=== PATIENT | male | born 1945 | race Hispanic/Latino ===

== ENCOUNTER 2018-04-26 10:59 | Day surgery (SDC) | payer MEDICARE, OTHER ==
[2013-12-02 09:37] VITALS: BMI 19.3
[2018-04-26] MEDS ORDERED: Ciprofloxacin 400mg/200ml D5W 400 MG/200 ML BAG IVPB ONE (14:38)
[2018-04-26] MEDS ORDERED: Lidocaine 2% Jelly (Uro-Jet) ONE (14:39)
[2018-04-26] MEDS ORDERED: Midazolam 2 MG/2 ML VIAL ONE (14:50)
[2018-04-26] MEDS ORDERED: Propofol 10 mg/ml Inj (20 ML) ONE (14:50)
[2018-04-26] MEDS ORDERED: Gentamicin 160 MG in Sodium Chloride 0.9% 100 ML IVPB ONE (14:53)
--- NOTE | 2018-04-26 15:24 | PCM.SURG1 ---
Surgeon's Initial Post Op Note - Surgeon's Notes Surgeon: Karsten Circuit Court Magistrate: DAVID Type of Anesthesia: General LMA Anesthesia Administered By: Staff Pre-Operative Diagnosis: Urinary retention/Large bladder calculi Operative Findings: same Post-Operative Diagnosis: URINARY RETENTION/LARGE BLADDER CALCULI/bph/PARKS Operation Performed: Cystoscopy Specimen/Specimens Removed: na Estimated Blood Loss: EBL {In ML}: 0 Blood Products Given: N/A Drains Used: No Drains Post-Op Condition: Good Date of Surgery/Procedure: 04/26/18 Time of Surgery/Procedure: 15:25
[2018-04-26 17:33] VITALS: BP 114/75; PULSE 61; RESP 20; TEMP 97.8; O2SAT 96
--- NOTE | 2018-04-27 00:18 | OP ---
PROCEDURE DATE: 04/26/2018 PREOPERATIVE DIAGNOSES: Hematuria and history of urinary retention. POSTOPERATIVE DIAGNOSES: Large bladder calculi and benign prostatic hypertrophy with significant bladder outlet obstruction. DESCRIPTION OF PROCEDURE: The patient was draped and prepped in the usual manner. He was asked to sign a detailed informed consent prior to the procedure. He is aware of the risks and complications of the procedure and risks and complications of holding anticoagulants. He agrees to the procedure, was brought into the room and draped and prepped in the usual manner. After time out was taken according to the rules and regulations of [facility], the patient was cystoscoped with #21 Storz panendoscope after carefully draping and prepping. The pendulous and membranous urethra were normal. The prostatic urethra showed trilobar hypertrophy with significant outlet obstruction. The bladder was entered atraumatically. There was a large size stone within the bladder. There was diffuse erythema of the bladder consistent with irritation from the stone. Based on the above findings, the patient will need cystolithotripsy. We will discuss with his medical team. Timbo Shelley MD
--- NOTE | 2018-04-27 16:13 | RAD ---
HISTORY: Urinary retention COMPARISON: No prior. FINDINGS: BOWEL: No evidence acute mechanical bowel obstruction. Moderate amount stool seen within the ascending and proximal transverse colon. BONES: Normal. OTHER FINDINGS: Urinary bladder appears distended. Elliptical shaped hyperdense focus of overlying the superior margin of the true pelvis could represent a large bladder calculus. Consider followup pelvic ultrasound to confirm and exclude other pathology. Metallic clips right upper quadrant of the abdomen. There also clips seen in the right inguinal region and overlying the right femoral head likely due to prior hernia repair. . IMPRESSION: Possible large bladder calculus within a distended urinary bladder. Followup bladder ultrasound recommended confirm and exclude other pathology
== END 2018-04-26 18:15 | disposition home or self-care (01) ==
LOC: C.SDS 10:59
PROVIDERS: ATTEND Urology
DX: N21.0 Calculus in bladder (principal); N40.1 Benign prostatic hyperplasia with lower urinary tract symptoms; N13.8 Other obstructive and reflux uropathy; R33.8 Other retention of urine; R31.9 Hematuria, unspecified; I25.10 Atherosclerotic heart disease of native coronary artery without angina pectoris; I48.91 Unspecified atrial fibrillation; J44.9 Chronic obstructive pulmonary disease, unspecified; E11.9 Type 2 diabetes mellitus without complications; E78.5 Hyperlipidemia, unspecified; I10 Essential (primary) hypertension; Z95.0 Presence of cardiac pacemaker; Z95.1 Presence of aortocoronary bypass graft; Z87.891 Personal history of nicotine dependence; Z79.01 Long term (current) use of anticoagulants
CPT/HCPCS: 52000; 74018; J0744; J1580

== ENCOUNTER 2018-05-24 11:25 | Inpatient (IN) | payer MEDICARE, OTHER ==
[2018-05-24 11:25] VITALS: BMI 19.3
[2018-05-24 12:01] LABS: MEAN CORPUSCULAR HEMOGLOBIN 26.3 pg (27.0-31.0); MEAN CORPUSCULAR HGB CONC 33.8 g/dL (33.0-37.0); MEAN PLATELET VOLUME 9.6 fL (7.2-11.7); RBC 4.45 Mil/uL (4.40-5.90); RED CELL DISTRIBUTION WIDTH 18.1 % (11.5-14.5); WHITE BLOOD COUNT 5.9 K/uL (4.8-10.8)
[2018-05-24 12:15] LABS: URINE BILIRUBIN NEGATIVE (NEGATIVE); URINE BLOOD 3+ (NEGATIVE); URINE CLARITY Hazy (Clear); URINE COLOR Red (YELLOW); URINE GLUCOSE (UA) 1+ mg/dL (Normal); URINE PROTEIN 2+ mg/dL (NEGATIVE); URINE UROBILINOGEN NORMAL mg/dL (0.2-1.0)
[2018-05-24 12:16] LABS: URINE LEUKOCYTE ESTERASE 1+ Leu/uL (Negative)
[2018-05-24 12:17] LABS: HEMOGLOBIN 11.7 g/dL (12.0-18.0); MEAN CELL VOLUME 77.7 fL (80.0-94.0)
[2018-05-24 12:23] LABS: ALB/GLOB RATIO 1.7 (1.0-2.1); ALBUMIN 4.8 g/dL (3.5-5.0); ALT/SGPT 23 U/L (21-72); AST/SGOT 20 U/L (17-59); BLOOD UREA NITROGEN 9 mg/dL (9-20); GFR AFRICAN-AMERICAN > 60; GFR NON-AFRICAN AMERICAN > 60
[2018-05-24 12:24] LABS: PROTHROMBIN TIME 43.9 SECONDS (9.7-12.2)
--- NOTE | 2018-05-24 13:07 | C.PDOC ---
History Of Present Illness 72 yo male with PMH of CABG, HTN, afib, ?kidney stones c/o hematuria for one week. Pt notes that he has been having worsening hematuria for week. Also notes pelvic pain and nausea. Notes believes he is a getting a procedure done for the hematuria. Last dose of coumadin on Thursday. Denies back pain , vomiting, diarrhea, sob, chest pain, or any other bleeding. Pt is a poor historian. 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)) History/Exam Limitations: no limitations Onset/Duration Of Symptoms: Days (7) Current Symptoms Are (Timing): Still Present Past Medical History Vital Signs: Last Vital Signs Temp 98.1 F 05/24/18 11:37 Pulse 66 05/24/18 14:56 Resp 18 05/24/18 14:56 BP 112/73 05/24/18 14:56 Pulse Ox 98 05/24/18 15:16 - Medical History PMH: Anemia, Cardia Arrhythmia (AFIB), HTN, Hypercholesterolemia, Peripheral Edema, Seizures (last episode february 2018- ETIOLOGY ?) Denies: Chronic Kidney Disease Surgical History: CABG (X3), Pacemaker (2017) Family History: States: Unknown Family Hx - Social History Hx Alcohol Use: No Hx Substance Use: No - Immunization History Hx Tetanus Toxoid Vaccination: No Hx Influenza Vaccination: No Hx Pneumococcal Vaccination: No Review Of Systems Except As Marked, All Systems Reviewed And Found Negative. Genitourinary: Positive for: Hematuria Physical Exam - Physical Exam Appears: Well, Non-toxic, No Acute Distress (pt is sleeping) Skin: Normal Color, Warm, Dry Head: Atraumatic, Normacephalic Eye(s): bilateral: Normal Inspection, EOMI Nose: Normal Oral Mucosa: Moist Neck: Normal, Normal ROM, Supple Chest: Symmetrical Cardiovascular: Rhythm Regular Respiratory: Normal Breath Sounds Gastrointestinal/Abdominal: Soft, Tenderness ((+) pelvic tenderness) Back: Normal Inspection, No CVA Tenderness, No Vertebral Tenderness Extremity: Normal ROM Neurological/Psych: Oriented x3, Normal Speech ED Course And Treatment - Laboratory Results Result Diagrams: 05/24/18 11:55 05/24/18 11:55 O2 Sat by Pulse Oximetry: 98 Progress Note: Case discussed with Dr Scruggs, instructs Luz admission. Case discussed with Dr Braun, agreed upon plan and admission. Disposition - Disposition Disposition: HOSPITALIZED Disposition Time: 12:28 Condition: STABLE - Clinical Impression Clinical Impression: Hematuria, Afib, Elevated INR
[2018-05-24] MEDS ORDERED: Phytonadione 10 mg/ml Inj (Adult) SC ONE (17:13)
--- NOTE | 2018-05-24 17:16 | CP.PCM.HP ---
History of Present Illness - History of Present Illness History of Present Illness: cc; blood in urine and urological condition HPI: PT is a 72 year old maler recentlly under my care with chronic a fib and prosthetic valve admitted for gross hematuria, large bladder stone. Pt INR on admission is 4 PT will urdergo surgery to remove stone by his urologyst. PT is being admitted with gross hematuria for urology procedure on 05/26/18. Pt co being nauseus. PMH: Iron deficiency anemia Hypercholesterolemia HTN Elevated PSA Convulsions Atril Fib Anemia Surgical Hx: 06/16/2017 Pacemaker 11/16/2016 Open Heart Family Hx: None Social Hx: No smoke No ETOH No Drugs Allergies: None Medications: Keppra 500mg Iron 325mg Miralax powder Metoprolol 25mg Atorvastatin 40mg Aspirin 81mg Warfarin 3mg Tamsulosin 0.4mg Amiodarone 100mg Past Patient History - Past Medical History & Family History Past Medical History?: Yes - Past Social History Smoking Status: Former Smoker - CARDIAC Hx Cardia Arrhythmia: Yes (AFIB) Hx Hypercholesterolemia: Yes Hx Hypertension: Yes Hx Pacemaker: Yes (2016) Hx Peripheral Edema: Yes - PULMONARY Hx Respiratory Disorders: No - NEUROLOGICAL Hx Seizures: Yes (last episode february 2018- ETIOLOGY ?) - HEENT Hx HEENT Problems: No - RENAL Hx Chronic Kidney Disease: No - ENDOCRINE/METABOLIC Hx Endocrine Disorders: No - HEMATOLOGICAL/ONCOLOGICAL Hx Anemia: Yes - INTEGUMENTARY Hx Dermatological Problems: No - MUSCULOSKELETAL/RHEUMATOLOGICAL Hx Musculoskeletal Disorders: No Hx Falls: Yes - GASTROINTESTINAL Hx Gastrointestinal Disorders: No - GENITOURINARY/GYNECOLOGICAL Hx Genitourinary Disorders: Yes Hx Prostate Problems: Yes (RETENTION) Other/Comment: HX: BLADDER STONE - PSYCHIATRIC Hx Substance Use: No - SURGICAL HISTORY Hx Coronary Artery Bypass Graft: Yes (X3) - ANESTHESIA Hx Anesthesia: Yes Hx Anesthesia Reactions: No Hx Malignant Hyperthermia: No Meds Allergies/Adverse Reactions: Allergies Allergy/AdvReac Type Severity Reaction Status Date / Time No Known Allergies Allergy Verified 05/24/18 11:40 Results - Vital Signs Recent Vital Signs: Last Vital Signs Temp 99.2 F 05/24/18 16:31 Pulse 66 05/24/18 16:31 Resp 20 05/24/18 16:31 BP 121/75 05/24/18 16:31 Pulse Ox 95 05/24/18 16:31 - Labs Result Diagrams: 05/25/18 08:00 05/25/18 08:00 Labs: Laboratory Results - last 24 hr 05/24/18 05/24/18 05/24/18 11:55 11:55 11:55 WBC 5.9 RBC 4.45 Hgb 11.7 L D Hct 34.6 L MCV 77.7 L D MCH 26.3 L MCHC 33.8 RDW 18.1 H Plt Count 141 MPV 9.6 PT 43.9 H* INR 4.0 APTT 50 H Sodium 144 Potassium 3.4 L Chloride 102 Carbon Dioxide 28 Anion Gap 17 BUN 9 Creatinine 0.8 Est GFR ( Amer) > 60 Est GFR (Non-Af Amer) > 60 Random Glucose 106 Calcium 9.0 Total Bilirubin 1.5 H AST 20 ALT 23 Alkaline Phosphatase 103 Total Protein 7.7 Albumin 4.8 Globulin 2.9 Albumin/Globulin Ratio 1.7 Urine Color Urine Clarity Urine pH Ur Specific [place] Urine Protein Urine Glucose (UA) Urine Ketones Urine Blood Urine Nitrate Urine Bilirubin Urine Urobilinogen Ur Leukocyte Esterase Urine WBC (Auto) Urine RBC (Auto) 05/24/18 11:55 WBC RBC Hgb Hct MCV MCH MCHC RDW Plt Count MPV PT INR APTT Sodium Potassium Chloride Carbon Dioxide Anion Gap BUN Creatinine Est GFR ( Amer) Est GFR (Non-Af Amer) Random Glucose Calcium Total Bilirubin AST ALT Alkaline Phosphatase Total Protein Albumin Globulin Albumin/Globulin Ratio Urine Color Red Urine Clarity Hazy Urine pH 6.0 Ur Specific [place] 1.014 Urine Protein 2+ H Urine Glucose (UA) 1+ H Urine Ketones Negative Urine Blood 3+ H Urine Nitrate Negative Urine Bilirubin Negative Urine Urobilinogen Normal Ur Leukocyte Esterase 1+ H Urine WBC (Auto) 57 H Urine RBC (Auto) 48929 H Assessment & Plan - Assessment and Plan (Free Text) Assessment: 1. Urology gross hematuria warfarin held small dose of vitamin d inr in AM Urologyst consulted 2. nausea and vomiting, mild hypokalemia fluids ordered 3. bp stable
[2018-05-24] MEDS ORDERED: Potassium Ch 20mEq in D5-1/2NS 1,000 ML IV SCH (18:00)
--- NOTE | 2018-05-24 19:51 | CARD ---
APPROVED REPORT EKG Measurement Heart [id number] <Conclusion> Sinus rhythm with 1st degree AV block Possible Left atrial enlargement Left bundle branch block Abnormal ECG
--- NOTE | 2018-05-24 20:27 | CP.PCM.CON ---
History of Present Illness - History of Present Illness History of Present Illness: The pt is a 72 whit old man, s/p bio VR, (last echo overall normal LV EF, non- obstructed valve with small paravalvular leak). pt is on amio for PAF (in nsr, mild first degree avb with lbbb. INR is 4.0 (warfarin), and pt has kidney stone and hematuria. No chest pain or lopez. He is for urological surgery. Review of Systems - Review of Systems All systems: reviewed and no additional remarkable complaints except (as above. otherwise negative) Past Patient History - Past Medical History & Family History Past Medical History?: Yes - Past Social History Smoking Status: Former Smoker - CARDIAC Hx Cardia Arrhythmia: Yes (AFIB) Hx Hypercholesterolemia: Yes Hx Hypertension: Yes Hx Pacemaker: Yes (2017) Hx Peripheral Edema: Yes - PULMONARY Hx Respiratory Disorders: No - NEUROLOGICAL Hx Seizures: Yes (last episode february 2018- ETIOLOGY ?) - HEENT Hx HEENT Problems: No - RENAL Hx Chronic Kidney Disease: No - ENDOCRINE/METABOLIC Hx Endocrine Disorders: No - HEMATOLOGICAL/ONCOLOGICAL Hx Anemia: Yes - INTEGUMENTARY Hx Dermatological Problems: No - MUSCULOSKELETAL/RHEUMATOLOGICAL Hx Musculoskeletal Disorders: No Hx Falls: Yes - GASTROINTESTINAL Hx Gastrointestinal Disorders: No - GENITOURINARY/GYNECOLOGICAL Hx Genitourinary Disorders: Yes Hx Prostate Problems: Yes (RETENTION) Other/Comment: HX: BLADDER STONE - PSYCHIATRIC Hx Substance Use: No - SURGICAL HISTORY Hx Coronary Artery Bypass Graft: Yes (X3) - ANESTHESIA Hx Anesthesia: Yes Hx Anesthesia Reactions: No Hx Malignant Hyperthermia: No Meds Allergies/Adverse Reactions: Allergies Allergy/AdvReac Type Severity Reaction Status Date / Time No Known Allergies Allergy Verified 05/24/18 11:40 - Medications Medications: Current Medications Amiodarone HCl (Cordarone) 100 mg PO DAILY [facility] Docusate Sodium (Colace) 100 mg PO BID [facility] Last Admin: 05/24/18 18:03 Dose: 100 mg Ferrous Sulfate (Feosol) 325 mg PO TID [facility] Last Admin: 05/24/18 18:02 Dose: 325 mg Potassium Chloride/Dextrose/Sod Cl (Potassium Chl 20 Meq In D5-1/2ns) 1,000 mls @ 75 mls/hr IV .[id number] [facility] Stop: 05/25/18 07:19 Last Admin: 05/24/18 18:04 Dose: 75 mls/hr Levetiracetam (Keppra) 500 mg PO BID [facility] Last Admin: 05/24/18 18:01 Dose: 500 mg Metoprolol Tartrate (Lopressor) 25 mg PO BID [facility] Last Admin: 05/24/18 18:02 Dose: 25 mg Ondansetron HCl (Zofran Inj) 4 mg IVP Q4H PRN PRN Reason: FOR NAUSEA/VOMITING Last Admin: 05/24/18 18:02 Dose: 4 mg Pantoprazole Sodium (Protonix Ec Tab) 40 mg PO DAILY [facility] Pneumococcal Polyvalent Vaccine (Pneumovax 23 Vaccine) 0.5 ml IM .ONCE ONE Stop: 05/26/18 10:01 Rosuvastatin Calcium (Crestor) 20 mg PO HS [facility] Tamsulosin HCl (Flomax) 0.4 mg PO HS [facility] Physical Exam - Constitutional Appears: Older Than Stated Age - Head Exam Head Exam: ATRAUMATIC - Eye Exam Eye Exam: EOMI - ENT Exam ENT Exam: Mucous Membranes Dry - Neck Exam Neck exam: Positive for: Normal Inspection - Respiratory Exam Respiratory Exam: Clear to Auscultation Bilateral - Cardiovascular Exam Cardiovascular Exam: REGULAR RHYTHM, Systolic Murmur - GI/Abdominal Exam GI & Abdominal Exam: Normal Bowel Sounds - Exam External exam: NORMAL EXTERNAL EXAM - Extremities Exam Extremities exam: Positive for: normal inspection - Back Exam Back exam: NORMAL INSPECTION - Neurological Exam Neurological exam: Alert, Oriented x3, Reflexes Normal - Psychiatric Exam Psychiatric exam: Normal Affect - Skin Skin Exam: Normal Color Results - Vital Signs Recent Vital Signs: Last Vital Signs Temp 99.2 F 05/24/18 16:31 Pulse 66 05/24/18 16:31 Resp 20 05/24/18 16:31 BP 121/75 05/24/18 18:02 Pulse Ox 95 05/24/18 16:31 - Labs Result Diagrams: 05/24/18 11:55 05/24/18 11:55 Labs: Laboratory Results - last 24 hr 05/24/18 05/24/18 05/24/18 11:55 11:55 11:55 WBC 5.9 RBC 4.45 Hgb 11.7 L D Hct 34.6 L MCV 77.7 L D MCH 26.3 L MCHC 33.8 RDW 18.1 H Plt Count 141 MPV 9.6 PT 43.9 H* INR 4.0 APTT 50 H Sodium 144 Potassium 3.4 L Chloride 102 Carbon Dioxide 28 Anion Gap 17 BUN 9 Creatinine 0.8 Est GFR ( Amer) > 60 Est GFR (Non-Af Amer) > 60 Random Glucose 106 Calcium 9.0 Total Bilirubin 1.5 H AST 20 ALT 23 Alkaline Phosphatase 103 Total Protein 7.7 Albumin 4.8 Globulin 2.9 Albumin/Globulin Ratio 1.7 Urine Color Urine Clarity Urine pH Ur Specific [place] Urine Protein Urine Glucose (UA) Urine Ketones Urine Blood Urine Nitrate Urine Bilirubin Urine Urobilinogen Ur Leukocyte Esterase Urine WBC (Auto) Urine RBC (Auto) 05/24/18 11:55 WBC RBC Hgb Hct MCV MCH MCHC RDW Plt Count MPV PT INR APTT Sodium Potassium Chloride Carbon Dioxide Anion Gap BUN Creatinine Est GFR ( Amer) Est GFR (Non-Af Amer) Random Glucose Calcium Total Bilirubin AST ALT Alkaline Phosphatase Total Protein Albumin Globulin Albumin/Globulin Ratio Urine Color Red Urine Clarity Hazy Urine pH 6.0 Ur Specific [place] 1.014 Urine Protein 2+ H Urine Glucose (UA) 1+ H Urine Ketones Negative Urine Blood 3+ H Urine Nitrate Negative Urine Bilirubin Negative Urine Urobilinogen Normal Ur Leukocyte Esterase 1+ H Urine WBC (Auto) 57 H Urine RBC (Auto) 46124 H - EKG Data EKG Interpreted by: Myself (read as above by me) Assessment & Plan - Assessment and Plan (Free Text) Assessment: 1. S/P AVR, bio. Pt can stop coumadin pending urological procedure, once INR is in the acceptable range. 2. CV status is stable.
--- NOTE | 2018-05-25 07:51 | CP.PCM.PN ---
Subjective - Date & Time of Evaluation Date of Evaluation: 05/25/18 Time of Evaluation: 07:49 - Subjective Subjective: Pt feels OK, eating breakfast. Objective - Vital Signs/Intake and Output Vital Signs (last 24 hours): Temp Pulse Resp BP Pulse Ox 98.8 F 68 20 108/64 96 05/25/18 00:11 05/25/18 00:11 05/25/18 00:11 05/25/18 00:11 05/25/18 00:11 Intake and Output: 05/25/18 05/25/18 06:59 18:59 Intake Total 1360 Output Total 300 Balance 1060 - Medications Medications: Current Medications Amiodarone HCl (Cordarone) 100 mg PO DAILY [facility] Docusate Sodium (Colace) 100 mg PO BID [facility] Last Admin: 05/24/18 18:03 Dose: 100 mg Ferrous Sulfate (Feosol) 325 mg PO TID [facility] Last Admin: 05/24/18 18:02 Dose: 325 mg Levetiracetam (Keppra) 500 mg PO BID [facility] Last Admin: 05/24/18 18:01 Dose: 500 mg Metoprolol Tartrate (Lopressor) 25 mg PO BID [facility] Last Admin: 05/24/18 18:02 Dose: 25 mg Ondansetron HCl (Zofran Inj) 4 mg IVP Q4H PRN PRN Reason: FOR NAUSEA/VOMITING Last Admin: 05/24/18 18:02 Dose: 4 mg Pantoprazole Sodium (Protonix Ec Tab) 40 mg PO DAILY [facility] Pneumococcal Polyvalent Vaccine (Pneumovax 23 Vaccine) 0.5 ml IM .ONCE ONE Stop: 05/26/18 10:01 Rosuvastatin Calcium (Crestor) 20 mg PO [facility] Last Admin: 05/24/18 21:35 Dose: 20 mg Tamsulosin HCl (Flomax) 0.4 mg PO [facility] Last Admin: 05/24/18 21:35 Dose: 0.4 mg - Labs Labs: 05/24/18 11:55 05/24/18 11:55 PT 43.9 SECONDS (9.7-12.2) H* 05/24/18 11:55 INR 4.0 05/24/18 11:55 APTT 50 SECONDS (21-34) H 05/24/18 11:55 - Constitutional Appears: Well - Head Exam Head Exam: ATRAUMATIC - Eye Exam Eye Exam: EOMI - ENT Exam ENT Exam: Mucous Membranes Moist - Neck Exam Neck Exam: Full ROM - Respiratory Exam Respiratory Exam: Clear to Ausculation Bilateral - Cardiovascular Exam Cardiovascular Exam: REGULAR RHYTHM, Murmur - GI/Abdominal Exam GI & Abdominal Exam: Normal Bowel Sounds - Exam External exam: NORMAL EXTERNAL EXAM - Back Exam Back Exam: NORMAL INSPECTION - Neurological Exam Neurological Exam: Alert, Normal Gait, Oriented x3 - Psychiatric Exam Psychiatric exam: Normal Affect - Skin Skin Exam: Normal Color Assessment and Plan - Assessment and Plan (Free Text) Assessment: 1. S/P AVR: INr was 4.o: Await lower INR to allow urology surgery: pt is cleared once INR is acceptable.
--- NOTE | 2018-05-25 08:08 | CP.PCM.PN ---
Subjective - Date & Time of Evaluation Date of Evaluation: 05/25/18 Time of Evaluation: 08:06 - Subjective Subjective: Patient with Known Large bladder calculi and bph with monk. Pt is scheueled for TULAP and open suprapubic Lithotomy tomorrow. Karsten Objective - Vital Signs/Intake and Output Vital Signs (last 24 hours): Temp Pulse Resp BP Pulse Ox 98.8 F 68 20 108/64 96 05/25/18 00:11 05/25/18 00:11 05/25/18 00:11 05/25/18 00:11 05/25/18 00:11 Intake and Output: 05/25/18 05/25/18 06:59 18:59 Intake Total 1360 Output Total 300 Balance 1060 - Medications Medications: Current Medications Amiodarone HCl (Cordarone) 100 mg PO DAILY [facility] Docusate Sodium (Colace) 100 mg PO BID [facility] Last Admin: 05/24/18 18:03 Dose: 100 mg Ferrous Sulfate (Feosol) 325 mg PO TID [facility] Last Admin: 05/24/18 18:02 Dose: 325 mg Levetiracetam (Keppra) 500 mg PO BID [facility] Last Admin: 05/24/18 18:01 Dose: 500 mg Metoprolol Tartrate (Lopressor) 25 mg PO BID [facility] Last Admin: 05/24/18 18:02 Dose: 25 mg Ondansetron HCl (Zofran Inj) 4 mg IVP Q4H PRN PRN Reason: FOR NAUSEA/VOMITING Last Admin: 05/24/18 18:02 Dose: 4 mg Pantoprazole Sodium (Protonix Ec Tab) 40 mg PO DAILY [facility] Pneumococcal Polyvalent Vaccine (Pneumovax 23 Vaccine) 0.5 ml IM .ONCE ONE Stop: 05/26/18 10:01 Rosuvastatin Calcium (Crestor) 20 mg PO [facility] Last Admin: 05/24/18 21:35 Dose: 20 mg Tamsulosin HCl (Flomax) 0.4 mg PO [facility] Last Admin: 05/24/18 21:35 Dose: 0.4 mg - Labs Labs: 05/24/18 11:55 05/24/18 11:55 PT 43.9 SECONDS (9.7-12.2) H* 05/24/18 11:55 INR 4.0 05/24/18 11:55 APTT 50 SECONDS (21-34) H 05/24/18 11:55
[2018-05-25 08:33] LABS: HEMOGLOBIN 9.9 g/dL (12.0-18.0); MEAN CELL VOLUME 78.2 fL (80.0-94.0); MEAN CORPUSCULAR HEMOGLOBIN 26.3 pg (27.0-31.0); MEAN CORPUSCULAR HGB CONC 33.7 g/dL (33.0-37.0); MEAN PLATELET VOLUME 9.6 fL (7.2-11.7); RBC 3.74 Mil/uL (4.40-5.90); RED CELL DISTRIBUTION WIDTH 18.3 % (11.5-14.5); WHITE BLOOD COUNT 3.8 K/uL (4.8-10.8)
[2018-05-25 08:46] LABS: INR 2.6; PROTHROMBIN TIME 28.2 SECONDS (9.7-12.2)
[2018-05-25 09:01] LABS: ALB/GLOB RATIO 1.4 (1.0-2.1); ALBUMIN 3.3 g/dL (3.5-5.0); ALT/SGPT 27 U/L (21-72); AST/SGOT 16 U/L (17-59); BLOOD UREA NITROGEN 10 mg/dL (9-20); CALCIUM 7.9 mg/dl (8.6-10.4); GFR AFRICAN-AMERICAN > 60; GFR NON-AFRICAN AMERICAN > 60
[2018-05-25] MEDS: Pantoprazole 40 mg EC Tab PO SCH (10:01)
--- NOTE | 2018-05-25 10:21 | RAD ---
Date of service: 05/25/2018 HISTORY: preop COMPARISON: Chest radiograph dated 12/02/2013 TECHNIQUE: Chest PA and lateral FINDINGS: LUNGS: No active pulmonary disease. PLEURA: No significant pleural effusion identified. No pneumothorax apparent. CARDIOVASCULAR: Prior sternotomy with sternal wires and surgical clips in place. Left subclavian access pacemaker. Atherosclerotic aortic calcifications. Cardiomediastinal silhouette stably enlarged. Intracardiac prosthetic device. OSSEOUS STRUCTURES: Unchanged. VISUALIZED UPPER ABDOMEN: Right upper quadrant surgical clips. OTHER FINDINGS: None. IMPRESSION: No active disease.
[2018-05-25] MEDS ORDERED: Potassium Chloride 20 mEq ER Tab PO ONE ×2 (10:45→16:00)
--- NOTE | 2018-05-25 14:29 | CP.PCM.PN ---
Subjective - Date & Time of Evaluation Date of Evaluation: 05/25/18 Time of Evaluation: 15:30 - Subjective Subjective: Pt reports feeling well no chest pain no sob no fever no pain pt reports eaing well without N?V Objective - Vital Signs/Intake and Output Vital Signs (last 24 hours): Temp Pulse Resp BP Pulse Ox 98.4 F 64 20 114/62 95 05/25/18 08:14 05/25/18 10:05 05/25/18 08:14 05/25/18 10:05 05/25/18 08:14 Intake and Output: 05/25/18 05/25/18 06:59 18:59 Intake Total 1360 Output Total 300 Balance 1060 - Medications Medications: Current Medications Amiodarone HCl (Cordarone) 100 mg PO DAILY [facility] Last Admin: 05/25/18 10:02 Dose: 100 mg Docusate Sodium (Colace) 100 mg PO BID [facility] Last Admin: 05/25/18 10:01 Dose: 100 mg Ferrous Sulfate (Feosol) 325 mg PO TID [facility] Last Admin: 05/25/18 13:23 Dose: 325 mg Levetiracetam (Keppra) 500 mg PO BID [facility] Last Admin: 05/25/18 10:01 Dose: 500 mg Metoprolol Tartrate (Lopressor) 25 mg PO BID [facility] Last Admin: 05/25/18 10:01 Dose: 25 mg Ondansetron HCl (Zofran Inj) 4 mg IVP Q4H PRN PRN Reason: FOR NAUSEA/VOMITING Last Admin: 05/24/18 18:02 Dose: 4 mg Pantoprazole Sodium (Protonix Ec Tab) 40 mg PO DAILY [facility] Last Admin: 05/25/18 10:01 Dose: 40 mg Pneumococcal Polyvalent Vaccine (Pneumovax 23 Vaccine) 0.5 ml IM .ONCE ONE Stop: 05/26/18 10:01 Potassium Chloride (K-Dur 20 Meq Er Tab) 40 meq PO DAILY [facility] Stop: 05/25/18 16:01 Rosuvastatin Calcium (Crestor) 20 mg PO [facility] Last Admin: 05/24/18 21:35 Dose: 20 mg Tamsulosin HCl (Flomax) 0.4 mg PO [facility] Last Admin: 05/24/18 21:35 Dose: 0.4 mg - Labs Labs: 05/25/18 08:00 05/25/18 08:00 PT 28.2 SECONDS (9.7-12.2) H D 05/25/18 08:00 INR 2.6 D 05/25/18 08:00 APTT 50 SECONDS (21-34) H 05/24/18 11:55 - Constitutional Appears: Well, Non-toxic - Eye Exam Eye Exam: Normal appearance - ENT Exam ENT Exam: Mucous Membranes Moist - Respiratory Exam Respiratory Exam: Clear to Ausculation Bilateral - Cardiovascular Exam Cardiovascular Exam: Irregular Rhythm. absent: JVD, Rubs - GI/Abdominal Exam GI & Abdominal Exam: Soft, Normal Bowel Sounds. absent: Tenderness Assessment and Plan - Assessment and Plan (Free Text) Assessment: bp stable hypokalemia replaced K prosthetic valve; coumadin helf for procedure INr still therapeutic monitor closely bladder stone and gross hematuria for surgery tomorrow.
--- NOTE | 2018-05-25 17:32 | CP.PCM.PN ---
Subjective - Date & Time of Evaluation Date of Evaluation: 05/25/18 Time of Evaluation: 17:30 - Subjective Subjective: Consent obtained,caseDiscussed with Dr Obando, for. or tomorrow Karsten Objective - Vital Signs/Intake and Output Vital Signs (last 24 hours): Temp Pulse Resp BP Pulse Ox 98.7 F 62 20 94/72 L 94 L 05/25/18 16:15 05/25/18 16:15 05/25/18 16:15 05/25/18 17:13 05/25/18 16:15 Intake and Output: 05/25/18 05/25/18 06:59 18:59 Intake Total 1360 200 Output Total 300 Balance 1060 200 - Medications Medications: Current Medications Amiodarone HCl (Cordarone) 100 mg PO DAILY [facility] Last Admin: 05/25/18 10:02 Dose: 100 mg Docusate Sodium (Colace) 100 mg PO BID [facility] Last Admin: 05/25/18 17:10 Dose: 100 mg Ferrous Sulfate (Feosol) 325 mg PO TID [facility] Last Admin: 05/25/18 17:11 Dose: 325 mg Levetiracetam (Keppra) 500 mg PO BID [facility] Last Admin: 05/25/18 17:10 Dose: 500 mg Metoprolol Tartrate (Lopressor) 25 mg PO BID [facility] Last Admin: 05/25/18 17:13 Dose: Not Given Ondansetron HCl (Zofran Inj) 4 mg IVP Q4H PRN PRN Reason: FOR NAUSEA/VOMITING Last Admin: 05/24/18 18:02 Dose: 4 mg Pantoprazole Sodium (Protonix Ec Tab) 40 mg PO DAILY [facility] Last Admin: 05/25/18 10:01 Dose: 40 mg Pneumococcal Polyvalent Vaccine (Pneumovax 23 Vaccine) 0.5 ml IM .ONCE ONE Stop: 05/26/18 10:01 Rosuvastatin Calcium (Crestor) 20 mg PO [facility] Last Admin: 05/24/18 21:35 Dose: 20 mg Tamsulosin HCl (Flomax) 0.4 mg PO HS [facility] Last Admin: 05/24/18 21:35 Dose: 0.4 mg - Labs Labs: 05/25/18 08:00 05/25/18 08:00 PT 28.2 SECONDS (9.7-12.2) H D 05/25/18 08:00 INR 2.6 D 05/25/18 08:00 APTT 50 SECONDS (21-34) H 05/24/18 11:55
[2018-05-25] MEDS ORDERED: Phytonadione 10 mg/ml Inj (Adult) IM STA (23:07)
[2018-05-26 05:43] LABS: HEMOGLOBIN 10.4 g/dL (12.0-18.0); MEAN CELL VOLUME 78.3 fL (80.0-94.0); MEAN CORPUSCULAR HEMOGLOBIN 25.9 pg (27.0-31.0); MEAN CORPUSCULAR HGB CONC 33.1 g/dL (33.0-37.0); MEAN PLATELET VOLUME 9.7 fL (7.2-11.7); RBC 4.02 Mil/uL (4.40-5.90)
[2018-05-26 05:54] LABS: INR 1.5; PROTHROMBIN TIME 16.9 SECONDS (9.7-12.2)
[2018-05-26 06:16] LABS: ALB/GLOB RATIO 1.5 (1.0-2.1); ALBUMIN 3.6 g/dL (3.5-5.0); ALT/SGPT 26 U/L (21-72); AST/SGOT 12 U/L (17-59); BLOOD UREA NITROGEN 9 mg/dL (9-20); CALCIUM 8.2 mg/dl (8.6-10.4); GFR AFRICAN-AMERICAN > 60; GFR NON-AFRICAN AMERICAN > 60
[2018-05-26] MEDS ORDERED: Gentamicin 160 MG in Sodium Chloride 0.9% 100 ML IVPB ONE (08:13)
[2018-05-26] MEDS ORDERED: Lidocaine 2% Jelly (Uro-Jet) ONE (08:14)
[2018-05-26] MEDS ORDERED: Ciprofloxacin 400mg/200ml D5W 400 MG/200 ML BAG IVPB ONE (08:14)
[2018-05-26] MEDS ORDERED: Midazolam 2 MG/2 ML VIAL ONE (08:18)
[2018-05-26] MEDS ORDERED: Propofol 10 mg/ml Inj (20 ML) ONE (08:18)
[2018-05-26] MEDS ORDERED: Succinylcholine Chloride 20 mg/ml Syr (5 ml) IV ONE (08:20)
[2018-05-26] MEDS: Pantoprazole 40 mg EC Tab PO SCH (09:30)
[2018-05-26] MEDS ORDERED: Pneumococcal 23-Valent Vaccine IM ONE (10:00)
[2018-05-26] MEDS ORDERED: ePHEDrine 50 mg/ml Inj ONE (10:07)
[2018-05-26] MEDS ORDERED: Lidocaine Hydrochloride 5 ML INJ ONE (10:14)
[2018-05-26] MEDS ORDERED: Bupivacaine HCl 0.5% PF (30 ml) Inj ONE (10:14)
[2018-05-26] MEDS ORDERED: Neostigmine Methylsulfate 3mg/3ml Syringe IV ONE (10:44)
[2018-05-26] MEDS ORDERED: Bacitracin Ointment 30 GM TUBE ONE (10:50)
--- NOTE | 2018-05-26 10:58 | PCM.SURG1 ---
Surgeon's Initial Post Op Note - Surgeon's Notes Surgeon: Karsten Restorer [employer]: Marva Type of Anesthesia: General Endo Anesthesia Administered By: Nasir miller Pre-Operative Diagnosis: BPH/PARKS/LARGE BLADDER CALCULI Operative Findings: BPH/PARKS/LARGE BLADDER CALCULI. Post-Operative Diagnosis: SAME Operation Performed: SUPRAPUBIC CYSTO LITHOTOMY/TULAP Specimen/Specimens Removed: BLADDER CALCULI Estimated Blood Loss: EBL {In ML}: 10 Blood Products Given: N/A Drains Used: No Drains Post-Op Condition: Good Date of Surgery/Procedure: 05/26/18 Time of Surgery/Procedure: 11:00
--- NOTE | 2018-05-26 12:03 | CP.PCM.PN ---
Subjective - Date & Time of Evaluation Date of Evaluation: 05/26/18 Time of Evaluation: 12:03 - Subjective Subjective: Pt seen in PACU. Pt with warming blancket sleeping comfortably. Per RN pt comfortable and awake and alert after surgery. Objective - Vital Signs/Intake and Output Vital Signs (last 24 hours): Temp Pulse Resp BP Pulse Ox 96 F L 60 15 123/66 95 05/26/18 11:08 05/26/18 11:37 05/26/18 11:37 05/26/18 11:37 05/26/18 11:37 Intake and Output: 05/26/18 05/26/18 06:59 18:59 Intake Total 300 1862 Balance 300 1862 - Medications Medications: Current Medications Amiodarone HCl (Cordarone) 100 mg PO DAILY [facility] Last Admin: 05/26/18 09:29 Dose: Not Given Docusate Sodium (Colace) 100 mg PO BID [facility] Last Admin: 05/26/18 09:29 Dose: Not Given Ferrous Sulfate (Feosol) 325 mg PO TID [facility] Last Admin: 05/26/18 09:29 Dose: Not Given Lactated Ringer's (Lactated Ringer's) 1,000 mls @ 100 mls/hr IV .Q10H [facility] Levetiracetam (Keppra) 500 mg PO BID [facility] Last Admin: 05/26/18 09:30 Dose: Not Given Meperidine HCl (Demerol) 12.5 mg IVP Q5M PRN PRN Reason: Shivering/Rigor Metoprolol Tartrate (Lopressor) 25 mg PO BID [facility] Last Admin: 05/26/18 09:30 Dose: Not Given Morphine Sulfate (Morphine) 1 mg IVP Q10M PRN PRN Reason: Pain, moderate (4-7) Stop: 05/26/18 13:11 Ondansetron HCl (Zofran Inj) 4 mg IVP Q4H PRN PRN Reason: FOR NAUSEA/VOMITING Last Admin: 05/24/18 18:02 Dose: 4 mg Pantoprazole Sodium (Protonix Ec Tab) 40 mg PO DAILY [facility] Last Admin: 05/26/18 09:30 Dose: Not Given Rosuvastatin Calcium (Crestor) 20 mg PO HS [facility] Last Admin: 05/25/18 21:20 Dose: 20 mg Tamsulosin HCl (Flomax) 0.4 mg PO HS [facility] Last Admin: 05/25/18 21:20 Dose: 0.4 mg - Labs Labs: 05/26/18 05:40 05/26/18 05:40 PT 16.9 SECONDS (9.7-12.2) H D 05/26/18 05:40 INR 1.5 D 05/26/18 05:40 APTT 32 SECONDS (21-34) D 05/26/18 05:40 - Constitutional Appears: Non-toxic - ENT Exam ENT Exam: Mucous Membranes Moist - Respiratory Exam Respiratory Exam: Clear to Ausculation Bilateral - Cardiovascular Exam Cardiovascular Exam: absent: JVD, Rubs - GI/Abdominal Exam GI & Abdominal Exam: Soft, Normal Bowel Sounds Assessment and Plan - Assessment and Plan (Free Text) Assessment: 1. sp cysto lithotripsy pt received FFP and one unit PRBC during surgery sp two doses of vitamin k will resume coumadin tomorrow as well as lovenox ok to start 24 hours per urologyst will monitor cbc closely 2. ivf 3. bp monitoring dvt prophylaxis
[2018-05-26] MEDS: Lactated Ringer's 1,000 ML IV SCH ×2 (12:05→21:49)
--- NOTE | 2018-05-26 12:22 | PCM.SURG1 ---
Surgeon's Initial Post Op Note - Surgeon's Notes Surgeon: Karsten Integrated Marketing Manager: DAVID Type of Anesthesia: General LMA Anesthesia Administered By: staff Pre-Operative Diagnosis: BPH/PARKS Operative Findings: same Post-Operative Diagnosis: same Operation Performed: TULAP Specimen/Specimens Removed: na Estimated Blood Loss: EBL {In ML}: 0 Blood Products Given: N/A Drains Used: No Drains Post-Op Condition: Good Date of Surgery/Procedure: 05/26/18 Time of Surgery/Procedure: 12:21
[2018-05-26 12:44] LABS: MEAN CELL VOLUME 78.9 fL (80.0-94.0); MEAN CORPUSCULAR HEMOGLOBIN 26.4 pg (27.0-31.0); MEAN CORPUSCULAR HGB CONC 33.5 g/dL (33.0-37.0); RBC 4.15 Mil/uL (4.40-5.90); RED CELL DISTRIBUTION WIDTH 18.9 % (11.5-14.5); WHITE BLOOD COUNT 4.7 K/uL (4.8-10.8)
[2018-05-26] MEDS: Dextrose 5%/0.45% NS 1,000 ML IV SCH ×2 (12:50→21:08)
--- NOTE | 2018-05-26 20:21 | CP.PCM.PN ---
Subjective - Date & Time of Evaluation Date of Evaluation: 05/26/18 Time of Evaluation: 20:18 - Subjective Subjective: Seen and exmined No chest pain or dyspnea Objective - Vital Signs/Intake and Output Vital Signs (last 24 hours): Temp Pulse Resp BP Pulse Ox 99.2 F 76 20 110/67 93 L 05/26/18 16:18 05/26/18 16:18 05/26/18 16:18 05/26/18 17:25 05/26/18 16:18 Intake and Output: 05/26/18 05/27/18 18:59 06:59 Intake Total 4317 Output Total 2850 Balance 1467 - Medications Medications: Current Medications Amiodarone HCl (Cordarone) 100 mg PO DAILY [facility] Last Admin: 05/26/18 09:29 Dose: Not Given Docusate Sodium (Colace) 100 mg PO BID [facility] Last Admin: 05/26/18 17:25 Dose: 100 mg Enoxaparin Sodium (Lovenox) 56.699 mg SC Q12H [facility] Ferrous Sulfate (Feosol) 325 mg PO TID [facility] Last Admin: 05/26/18 17:26 Dose: 325 mg Lactated Ringer's (Lactated Ringer's) 1,000 mls @ 100 mls/hr IV .Q10H [facility] Last Admin: 05/26/18 12:05 Dose: Not Given Dextrose/Sodium Chloride (Dextrose 5%/0.45% Ns 1000 Ml) 1,000 mls @ 125 mls/hr IV .Q8H [facility] Stop: 05/27/18 04:14 Last Admin: 05/26/18 12:50 Dose: 125 mls/hr Levetiracetam (Keppra) 500 mg PO BID [facility] Last Admin: 05/26/18 17:25 Dose: 500 mg Meperidine HCl (Demerol) 12.5 mg IVP Q5M PRN PRN Reason: Shivering/Rigor Metoprolol Tartrate (Lopressor) 25 mg PO BID [facility] Last Admin: 05/26/18 17:25 Dose: 25 mg Ondansetron HCl (Zofran Inj) 4 mg IVP Q4H PRN PRN Reason: FOR NAUSEA/VOMITING Last Admin: 05/24/18 18:02 Dose: 4 mg Pantoprazole Sodium (Protonix Ec Tab) 40 mg PO DAILY [facility] Last Admin: 05/26/18 09:30 Dose: Not Given Rosuvastatin Calcium (Crestor) 20 mg PO HS [facility] Last Admin: 05/25/18 21:20 Dose: 20 mg Tamsulosin HCl (Flomax) 0.4 mg PO HS [facility] Last Admin: 05/25/18 21:20 Dose: 0.4 mg Warfarin Sodium (Coumadin) 5 mg PO 1800 [facility] Stop: 05/27/18 18:01 - Labs Labs: 05/26/18 12:39 05/26/18 05:40 PT 16.9 SECONDS (9.7-12.2) H D 05/26/18 05:40 INR 1.5 D 05/26/18 05:40 APTT 32 SECONDS (21-34) D 05/26/18 05:40 - Constitutional Appears: Well, No Acute Distress - Head Exam Head Exam: ATRAUMATIC - Eye Exam Eye Exam: EOMI Pupil Exam: PERRL - Respiratory Exam Respiratory Exam: Clear to Ausculation Bilateral - Cardiovascular Exam Cardiovascular Exam: REGULAR RHYTHM, Murmur. absent: JVD - GI/Abdominal Exam GI & Abdominal Exam: Soft. absent: Tenderness - Extremities Exam Extremities Exam: absent: Calf Tenderness - Neurological Exam Neurological Exam: CN II-XII Intact, Oriented x3 Assessment and Plan (1) S/P AVR Assessment & Plan: Patient s/p modified Cabrol procedure and mechanical AVR Anticoagulation with heparin, bridge to warfarin Status: Acute (2) S/P CABG (coronary artery bypass graft) Assessment & Plan: S/p resecent reop and CABG Cont with curent mes Stable and asymptomatic Status: Acute (3) Afib Assessment & Plan: Cont with amiodarone Cont with anticoagulation for stroke prevention Status: Acute
--- NOTE | 2018-05-27 06:32 | OP ---
PROCEDURE DATE: 05/26/2018 PREOPERATIVE DIAGNOSES: Large bladder calculi and benign prostatic hypertrophy with bladder outlet obstruction causing hematuria. POSTOPERATIVE DIAGNOSES: Large bladder calculi and benign prostatic hypertrophy with bladder outlet obstruction causing hematuria PROCEDURE: Transurethral laser ablation of the prostate and suprapubic cystolithotomy. SURGEON: Dr. Karsten Everett CONCRETE PUMP OPERATOR: House doctor, Dr. Durham FINDINGS: Large bladder calculi and BPH with significant bladder outlet obstruction. DESCRIPTION OF PROCEDURE: As follows. Prior to procedure, we consulted with Dr. Braun and Dr. Bailey, the cardiac agriculture consultant on the case. We retained a full consent from the patient. He was apprised of all the risks and complications of laser surgery and suprapubic cystolithotomy in anticoagulation patients, and we advised him the special risks due to his metallic heart valve. The patient agreed to these risks and was brought to the room and draped and prepped in the usual manner. First, resectoscope with a laser cystoscope, the large bladder calculi was noted. There were also several clots in the bladder which were evacuated. The laser resectoscope was inserted and vaporization of prostate began in 11 o'clock down to 6 o'clock, vaporizing all tissue visible down to just proximal to the verumontanum. No injury occurred to the bladder, external sphincter, or verumontanum. Good hemostasis was achieved. The scope was then removed and a scope with a rollerball electro was inserted, and the prostate was further fulgurated to assure good postoperative hemostasis using with anticoagulation. The patient then had a #24 three-way hematuria catheter inserted, and CBI was begun that was clear. The patient was then draped and prepped in the recumbent position. A midline incision was made approximately 1 inch above the suprapubic bone carried down to the subcutaneous tissues until the rectal muscle was identified. The rectal muscle was opened in the midline, and the area was dissected free of any fibrous attachments with blunt and sharp dissection. No bleeding occurred. The bladder was then distended by clamping the outflow from the three-way catheter and filling the bladder. Once the bladder was adequately distended, two stay sutures were placed in the bladder. The bladder was pulled upward, and a knife was used to make a small incision. Once the bladder was drained, the Bovie was used to enlarge the incision until could be placed in the bladder. The stone was grasped and removed. Palpation of the remainder of the bladder showed no other calculi. The Massey catheter balloon was then placed in the proper position. The patient tolerated this well. There was no bleeding. The 3-0 chromic suture was then used to close the small bladder incision in a [id number] fashion, and then the second layer was imbricated above the incision with a 3-0 chromic suture. The patient tolerated this well. There was no bleeding. The bladder was distended. There were no leaks. Therefore, a drain was not left. The fascia was then closed with a 2-0 Dexon suture in a [id number] fashion using several sutures and then a subcutaneous tissue with 3-0 chromic suture was used and skin gisella replaced. Marcaine 0.5% solution was injected into the lateral edges of the incision to give postoperative anesthesia. The patient tolerated this procedure well. On leaving the OR, the irrigation was clear. We discussed this case with the attending and the hobbies and crafts sales representative postop. Timbo Shelley Md
[2018-05-27] MEDS: Lactated Ringer's 1,000 ML IV SCH (07:15)
[2018-05-27 08:22] LABS: BLOOD UREA NITROGEN 4 mg/dL (9-20); CALCIUM 8.1 mg/dl (8.6-10.4); GFR AFRICAN-AMERICAN > 60; GFR NON-AFRICAN AMERICAN > 60
[2018-05-27] MEDS: Pantoprazole 40 mg EC Tab PO SCH (09:45)
--- NOTE | 2018-05-27 10:00 | CP.PCM.PN ---
Subjective - Date & Time of Evaluation Date of Evaluation: 05/27/18 Time of Evaluation: 09:57 - Subjective Subjective: POD#1 pt afibrile urine clear with cbi,appears to be doing well Suggest stop cbi observe pt with lujan in place if urine clear re start anticoagulation. lujan must stay in place 3 weeks. Karsten Objective - Vital Signs/Intake and Output Vital Signs (last 24 hours): Temp Pulse Resp BP Pulse Ox 99.8 F H 75 20 102/64 96 05/27/18 07:29 05/27/18 07:29 05/27/18 07:29 05/27/18 09:45 05/27/18 07:29 Intake and Output: 05/27/18 05/27/18 06:59 18:59 Intake Total 34829 Output Total 45007 Balance -950 - Medications Medications: Current Medications Amiodarone HCl (Cordarone) 100 mg PO DAILY [facility] Last Admin: 05/27/18 09:45 Dose: 100 mg Docusate Sodium (Colace) 100 mg PO BID [facility] Last Admin: 05/27/18 09:44 Dose: 100 mg Enoxaparin Sodium (Lovenox) 56.699 mg SC Q12H [facility] Ferrous Sulfate (Feosol) 325 mg PO TID [facility] Last Admin: 05/27/18 09:45 Dose: 325 mg Lactated Ringer's (Lactated Ringer's) 1,000 mls @ 100 mls/hr IV .Q10H [facility] Last Admin: 05/26/18 21:49 Dose: Not Given Levetiracetam (Keppra) 500 mg PO BID [facility] Last Admin: 05/27/18 09:45 Dose: 500 mg Meperidine HCl (Demerol) 12.5 mg IVP Q5M PRN PRN Reason: Shivering/Rigor Metoprolol Tartrate (Lopressor) 25 mg PO BID [facility] Last Admin: 05/27/18 09:45 Dose: 25 mg Ondansetron HCl (Zofran Inj) 4 mg IVP Q4H PRN PRN Reason: FOR NAUSEA/VOMITING Last Admin: 05/24/18 18:02 Dose: 4 mg Pantoprazole Sodium (Protonix Ec Tab) 40 mg PO DAILY [facility] Last Admin: 05/27/18 09:45 Dose: 40 mg Rosuvastatin Calcium (Crestor) 20 mg PO HS [facility] Last Admin: 05/26/18 21:08 Dose: 20 mg Tamsulosin HCl (Flomax) 0.4 mg PO HS [facility] Last Admin: 05/26/18 21:09 Dose: 0.4 mg Warfarin Sodium (Coumadin) 5 mg PO 1800 [facility] Stop: 05/27/18 18:01 - Labs Labs: 05/26/18 12:39 05/27/18 07:47 PT 16.9 SECONDS (9.7-12.2) H D 05/26/18 05:40 INR 1.5 D 05/26/18 05:40 APTT 32 SECONDS (21-34) D 05/26/18 05:40
[2018-05-27] MEDS ORDERED: Enoxaparin 60 mg Syringe SC SCH (12:15)
[2018-05-27 13:55] LABS: HEMOGLOBIN 11.2 g/dL (12.0-18.0); MEAN CELL VOLUME 79.7 fL (80.0-94.0); MEAN CORPUSCULAR HEMOGLOBIN 26.5 pg (27.0-31.0); MEAN CORPUSCULAR HGB CONC 33.2 g/dL (33.0-37.0); MEAN PLATELET VOLUME 9.7 fL (7.2-11.7); RBC 4.22 Mil/uL (4.40-5.90); RED CELL DISTRIBUTION WIDTH 19.3 % (11.5-14.5); WHITE BLOOD COUNT 7.1 K/uL (4.8-10.8)
[2018-05-27 16:55] LABS: INR 1.3; PROTHROMBIN TIME 14.5 SECONDS (9.7-12.2)
--- NOTE | 2018-05-27 17:20 | CP.PCM.PN ---
Subjective - Date & Time of Evaluation Date of Evaluation: 05/27/18 Time of Evaluation: 17:17 - Subjective Subjective: No SOB or CP Objective - Vital Signs/Intake and Output Vital Signs (last 24 hours): Temp Pulse Resp BP Pulse Ox 99.3 F 73 20 101/62 95 05/27/18 16:00 05/27/18 16:00 05/27/18 16:00 05/27/18 16:00 05/27/18 16:00 Intake and Output: 05/27/18 05/27/18 06:59 18:59 Intake Total 85068 4050 Output Total 91031 5350 Balance -950 -1300 - Medications Medications: Current Medications Amiodarone HCl (Cordarone) 100 mg PO DAILY [facility] Last Admin: 05/27/18 09:45 Dose: 100 mg Docusate Sodium (Colace) 100 mg PO BID [facility] Last Admin: 05/27/18 09:44 Dose: 100 mg Enoxaparin Sodium (Lovenox) 56.699 mg SC Q12H [facility] Last Admin: 05/27/18 11:22 Dose: Not Given Ferrous Sulfate (Feosol) 325 mg PO TID [facility] Last Admin: 05/27/18 13:46 Dose: 325 mg Finasteride (Proscar) 5 mg PO DAILY [facility] Last Admin: 05/27/18 11:20 Dose: 5 mg Lactated Ringer's (Lactated Ringer's) 1,000 mls @ 100 mls/hr IV .Q10H [facility] Last Admin: 05/26/18 21:49 Dose: Not Given Levetiracetam (Keppra) 500 mg PO BID [facility] Last Admin: 05/27/18 09:45 Dose: 500 mg Meperidine HCl (Demerol) 12.5 mg IVP Q5M PRN PRN Reason: Shivering/Rigor Metoprolol Tartrate (Lopressor) 25 mg PO BID [facility] Last Admin: 05/27/18 09:45 Dose: 25 mg Ondansetron HCl (Zofran Inj) 4 mg IVP Q4H PRN PRN Reason: FOR NAUSEA/VOMITING Last Admin: 05/24/18 18:02 Dose: 4 mg Pantoprazole Sodium (Protonix Ec Tab) 40 mg PO DAILY [facility] Last Admin: 05/27/18 09:45 Dose: 40 mg Rosuvastatin Calcium (Crestor) 20 mg PO HS [facility] Last Admin: 05/26/18 21:08 Dose: 20 mg Tamsulosin HCl (Flomax) 0.4 mg PO HS [facility] Last Admin: 05/26/18 21:09 Dose: 0.4 mg Warfarin Sodium (Coumadin) 5 mg PO 1800 [facility] Stop: 05/27/18 18:01 - Labs Labs: 05/27/18 13:48 05/27/18 07:47 PT 14.5 SECONDS (9.7-12.2) H 05/27/18 16:45 INR 1.3 05/27/18 16:45 APTT 32 SECONDS (21-34) D 05/26/18 05:40 - Constitutional Appears: Well - Head Exam Head Exam: ATRAUMATIC - ENT Exam ENT Exam: Mucous Membranes Moist - Neck Exam Neck Exam: Full ROM - Respiratory Exam Respiratory Exam: Clear to Ausculation Bilateral - Cardiovascular Exam Cardiovascular Exam: REGULAR RHYTHM, +S1, +S2 - Extremities Exam Extremities Exam: absent: Pedal Edema - Neurological Exam Neurological Exam: Oriented x3 - Psychiatric Exam Psychiatric exam: Normal Affect - Skin Skin Exam: Warm Assessment and Plan - Assessment and Plan (Free Text) Assessment: 1. Obstructive uropathy s/p cystolithotomy 2. CAD s/p two CABG surgeries 3. 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 PAF -- on amio, in sinus Plan: 1. Cont therapeutic Lovenox with warfarin bridging 2. Cont amiodarone 100mg daily
--- NOTE | 2018-05-27 18:01 | CP.PCM.PN ---
Subjective - Date & Time of Evaluation Date of Evaluation: 05/27/18 - Subjective Subjective: I was called by SHYLA gil pt had gross hematuria as he got up to walk to the bathroom. Urology asked for anticoagulatin to be stopped and resumed tomorrow. PT is constitated. Objective - Vital Signs/Intake and Output Vital Signs (last 24 hours): Temp Pulse Resp BP Pulse Ox 99.3 F 73 20 101/62 95 05/27/18 16:00 05/27/18 16:00 05/27/18 16:00 05/27/18 16:00 05/27/18 16:00 Intake and Output: 05/27/18 05/27/18 06:59 18:59 Intake Total 42858 4050 Output Total 82491 5350 Balance -950 -1300 - Medications Medications: Current Medications Amiodarone HCl (Cordarone) 100 mg PO DAILY [facility] Last Admin: 05/27/18 09:45 Dose: 100 mg Docusate Sodium (Colace) 100 mg PO BID [facility] Last Admin: 05/27/18 09:44 Dose: 100 mg Enoxaparin Sodium (Lovenox) 56.699 mg SC Q12H [facility] Last Admin: 05/27/18 11:22 Dose: Not Given Ferrous Sulfate (Feosol) 325 mg PO TID [facility] Last Admin: 05/27/18 13:46 Dose: 325 mg Finasteride (Proscar) 5 mg PO DAILY [facility] Last Admin: 05/27/18 11:20 Dose: 5 mg Lactated Ringer's (Lactated Ringer's) 1,000 mls @ 100 mls/hr IV .Q10H [facility] Last Admin: 05/26/18 21:49 Dose: Not Given Levetiracetam (Keppra) 500 mg PO BID [facility] Last Admin: 05/27/18 09:45 Dose: 500 mg Meperidine HCl (Demerol) 12.5 mg IVP Q5M PRN PRN Reason: Shivering/Rigor Metoprolol Tartrate (Lopressor) 25 mg PO BID [facility] Last Admin: 05/27/18 09:45 Dose: 25 mg Ondansetron HCl (Zofran Inj) 4 mg IVP Q4H PRN PRN Reason: FOR NAUSEA/VOMITING Last Admin: 05/24/18 18:02 Dose: 4 mg Pantoprazole Sodium (Protonix Ec Tab) 40 mg PO DAILY [facility] Last Admin: 05/27/18 09:45 Dose: 40 mg Rosuvastatin Calcium (Crestor) 20 mg PO HS [facility] Last Admin: 05/26/18 21:08 Dose: 20 mg Tamsulosin HCl (Flomax) 0.4 mg PO HS [facility] Last Admin: 05/26/18 21:09 Dose: 0.4 mg Warfarin Sodium (Coumadin) 5 mg PO 1800 [facility] Stop: 05/27/18 18:01 - Labs Labs: 05/27/18 13:48 05/27/18 07:47 PT 14.5 SECONDS (9.7-12.2) H 05/27/18 16:45 INR 1.3 05/27/18 16:45 APTT 32 SECONDS (21-34) D 05/26/18 05:40 - Constitutional Appears: Well Assessment and Plan - Assessment and Plan (Free Text) Plan: gross hematuria anticogualation held asked to wait until tomorrow by urologyst before resuming anticoagulation monitor cbc resume lovenox and coumadin tomorrow.
--- NOTE | 2018-05-27 19:00 | CP.PCM.PN ---
Subjective - Date & Time of Evaluation Date of Evaluation: 05/27/18 Time of Evaluation: 18:58 - Subjective Subjective: Urine was clear this am turned bloody with dc of cbi restarted now clear. OK to restart levenox orine should be monitored closly for bleeding. Karsten Objective - Vital Signs/Intake and Output Vital Signs (last 24 hours): Temp Pulse Resp BP Pulse Ox 99.3 F 73 20 99/66 L 95 05/27/18 16:00 05/27/18 16:00 05/27/18 16:00 05/27/18 18:04 05/27/18 16:00 Intake and Output: 05/27/18 05/27/18 06:59 18:59 Intake Total 68472 4050 Output Total 78334 5350 Balance -950 -1300 - Medications Medications: Current Medications Amiodarone HCl (Cordarone) 100 mg PO DAILY [facility] Last Admin: 05/27/18 09:45 Dose: 100 mg Docusate Sodium (Colace) 100 mg PO BID [facility] Last Admin: 05/27/18 17:59 Dose: 100 mg Enoxaparin Sodium (Lovenox) 56.699 mg SC Q12H [facility] Last Admin: 05/27/18 11:22 Dose: Not Given Ferrous Sulfate (Feosol) 325 mg PO TID [facility] Last Admin: 05/27/18 17:59 Dose: 325 mg Finasteride (Proscar) 5 mg PO DAILY [facility] Last Admin: 05/27/18 11:20 Dose: 5 mg Lactated Ringer's (Lactated Ringer's) 1,000 mls @ 100 mls/hr IV .Q10H [facility] Last Admin: 05/26/18 21:49 Dose: Not Given Lactulose (Enulose) 20 gm PO ONCE ONE Stop: 05/27/18 18:26 Levetiracetam (Keppra) 500 mg PO BID [facility] Last Admin: 05/27/18 17:59 Dose: 500 mg Meperidine HCl (Demerol) 12.5 mg IVP Q5M PRN PRN Reason: Shivering/Rigor Metoprolol Tartrate (Lopressor) 25 mg PO BID [facility] Last Admin: 05/27/18 18:04 Dose: Not Given Ondansetron HCl (Zofran Inj) 4 mg IVP Q4H PRN PRN Reason: FOR NAUSEA/VOMITING Last Admin: 05/24/18 18:02 Dose: 4 mg Pantoprazole Sodium (Protonix Ec Tab) 40 mg PO DAILY [facility] Last Admin: 05/27/18 09:45 Dose: 40 mg Rosuvastatin Calcium (Crestor) 20 mg PO HS [facility] Last Admin: 05/26/18 21:08 Dose: 20 mg Tamsulosin HCl (Flomax) 0.4 mg PO HS [facility] Last Admin: 05/26/18 21:09 Dose: 0.4 mg - Labs Labs: 05/27/18 13:48 05/27/18 07:47 PT 14.5 SECONDS (9.7-12.2) H 05/27/18 16:45 INR 1.3 05/27/18 16:45 APTT 32 SECONDS (21-34) D 05/26/18 05:40
[2018-05-27] MEDS: Enoxaparin 60 mg Syringe SC SCH (21:26)
[2018-05-28 08:49] LABS: HEMOGLOBIN 11.5 g/dL (12.0-18.0); MEAN CELL VOLUME 79.1 fL (80.0-94.0); MEAN CORPUSCULAR HEMOGLOBIN 26.5 pg (27.0-31.0); MEAN CORPUSCULAR HGB CONC 33.6 g/dL (33.0-37.0); MEAN PLATELET VOLUME 9.6 fL (7.2-11.7); RBC 4.32 Mil/uL (4.40-5.90); RED CELL DISTRIBUTION WIDTH 19.6 % (11.5-14.5); WHITE BLOOD COUNT 8.2 K/uL (4.8-10.8)
[2018-05-28] MEDS: Pantoprazole 40 mg EC Tab PO SCH (09:35)
[2018-05-28] MEDS: Enoxaparin 60 mg Syringe SC SCH ×2 (09:35→21:59)
[2018-05-28 11:29] LABS: INR 1.2; PROTHROMBIN TIME 13.5 SECONDS (9.7-12.2)
--- NOTE | 2018-05-28 11:38 | CP.PCM.PN ---
Subjective - Date & Time of Evaluation Date of Evaluation: 05/28/18 Time of Evaluation: 11:35 - Subjective Subjective: Urine is now bloody without cbi pt was started on levonox. Will re start cbi if pt fails to clear may need to stop levenox.Karsten Objective - Vital Signs/Intake and Output Vital Signs (last 24 hours): Temp Pulse Resp BP Pulse Ox 98.4 F 79 20 95/60 L 96 05/28/18 07:31 05/28/18 07:31 05/28/18 07:31 05/28/18 09:36 05/28/18 07:31 Intake and Output: 05/28/18 05/28/18 06:59 18:59 Intake Total 400 Output Total 850 Balance -450 - Medications Medications: Current Medications Amiodarone HCl (Cordarone) 100 mg PO DAILY [facility] Last Admin: 05/28/18 09:37 Dose: 100 mg Docusate Sodium (Colace) 100 mg PO BID [facility] Last Admin: 05/28/18 09:35 Dose: 100 mg Enoxaparin Sodium (Lovenox) 60 mg SC Q12 [facility] Last Admin: 05/28/18 09:35 Dose: 60 mg Ferrous Sulfate (Feosol) 325 mg PO TID [facility] Last Admin: 05/28/18 09:36 Dose: 325 mg Finasteride (Proscar) 5 mg PO DAILY [facility] Last Admin: 05/28/18 09:36 Dose: 5 mg Lactated Ringer's (Lactated Ringer's) 1,000 mls @ 100 mls/hr IV .Q10H [facility] Last Admin: 05/27/18 07:15 Dose: Not Given Lactulose (Enulose) 20 gm PO HS PRN PRN Reason: Constipation Levetiracetam (Keppra) 500 mg PO BID [facility] Last Admin: 05/28/18 09:36 Dose: 500 mg Meperidine HCl (Demerol) 12.5 mg IVP Q5M PRN PRN Reason: Shivering/Rigor Metoprolol Tartrate (Lopressor) 25 mg PO BID [facility] Last Admin: 05/28/18 09:36 Dose: Not Given Ondansetron HCl (Zofran Inj) 4 mg IVP Q4H PRN PRN Reason: FOR NAUSEA/VOMITING Last Admin: 05/24/18 18:02 Dose: 4 mg Pantoprazole Sodium (Protonix Ec Tab) 40 mg PO DAILY [facility] Last Admin: 05/28/18 09:35 Dose: 40 mg Rosuvastatin Calcium (Crestor) 20 mg PO HS [facility] Last Admin: 05/27/18 21:26 Dose: 20 mg Tamsulosin HCl (Flomax) 0.4 mg PO HS [facility] Last Admin: 05/27/18 21:30 Dose: 0.4 mg - Labs Labs: 05/28/18 08:40 05/27/18 07:47 PT 13.5 SECONDS (9.7-12.2) H 05/28/18 11:12 INR 1.2 05/28/18 11:12 APTT 32 SECONDS (21-34) D 05/26/18 05:40
[2018-05-28 17:47] LABS: BLOOD UREA NITROGEN 12 mg/dL (9-20); CALCIUM 8.4 mg/dl (8.6-10.4); GFR AFRICAN-AMERICAN > 60; GFR NON-AFRICAN AMERICAN > 60
[2018-05-28] MEDS: Sodium Chloride 0.45% 1,000 ML IV SCH (20:23)
--- NOTE | 2018-05-28 23:02 | CP.PCM.PN ---
Subjective - Date & Time of Evaluation Date of Evaluation: 05/28/18 Time of Evaluation: 23:02 - Subjective Subjective: Pt awake and alert. Found in commode, finally able to have bm. Pt's bp was in the 90"s earlier, I ordered some fluids doing well now. PT denies any dizziness or pain. URine is not bloody now. Objective - Vital Signs/Intake and Output Vital Signs (last 24 hours): Temp Pulse Resp BP Pulse Ox 98.3 F 70 20 94/72 L 96 05/28/18 15:10 05/28/18 15:10 05/28/18 15:10 05/28/18 20:00 05/28/18 15:10 Intake and Output: 05/28/18 05/29/18 18:59 06:59 Intake Total 4750 Output Total 5350 Balance -600 - Medications Medications: Current Medications Amiodarone HCl (Cordarone) 100 mg PO DAILY [facility] Last Admin: 05/28/18 09:37 Dose: 100 mg Docusate Sodium (Colace) 100 mg PO BID [facility] Last Admin: 05/28/18 17:38 Dose: 100 mg Enoxaparin Sodium (Lovenox) 60 mg SC Q12 [facility] Last Admin: 05/28/18 21:59 Dose: 60 mg Ferrous Sulfate (Feosol) 325 mg PO TID [facility] Last Admin: 05/28/18 17:38 Dose: 325 mg Finasteride (Proscar) 5 mg PO DAILY [facility] Last Admin: 05/28/18 09:36 Dose: 5 mg Sodium Chloride (Sodium Chloride 0.45%) 1,000 mls @ 125 mls/hr IV .Q8H [facility] Stop: 05/29/18 11:29 Last Admin: 05/28/18 20:23 Dose: 125 mls/hr Lactulose (Enulose) 20 gm PO HS PRN PRN Reason: Constipation Last Admin: 05/28/18 17:38 Dose: 20 gm Levetiracetam (Keppra) 500 mg PO BID [facility] Last Admin: 05/28/18 20:23 Dose: 500 mg Meperidine HCl (Demerol) 12.5 mg IVP Q5M PRN PRN Reason: Shivering/Rigor Metoprolol Tartrate (Lopressor) 25 mg PO BID [facility] Last Admin: 05/28/18 17:27 Dose: Not Given Ondansetron HCl (Zofran Inj) 4 mg IVP Q4H PRN PRN Reason: FOR NAUSEA/VOMITING Last Admin: 05/24/18 18:02 Dose: 4 mg Pantoprazole Sodium (Protonix Ec Tab) 40 mg PO DAILY [facility] Last Admin: 05/28/18 09:35 Dose: 40 mg Rosuvastatin Calcium (Crestor) 20 mg PO HS [facility] Last Admin: 05/28/18 22:00 Dose: 20 mg Tamsulosin HCl (Flomax) 0.4 mg PO HS [facility] Last Admin: 05/28/18 22:00 Dose: 0.4 mg - Labs Labs: 05/28/18 08:40 05/28/18 16:59 PT 13.5 SECONDS (9.7-12.2) H 05/28/18 11:12 INR 1.2 05/28/18 11:12 APTT 31 SECONDS (21-34) 05/28/18 12:11 - Constitutional Appears: Well, Non-toxic - Eye Exam Eye Exam: Normal appearance - ENT Exam ENT Exam: Mucous Membranes Moist - Respiratory Exam Respiratory Exam: NORMAL BREATHING PATTERN. absent: Rales - Cardiovascular Exam Cardiovascular Exam: absent: JVD, Rubs - GI/Abdominal Exam GI & Abdominal Exam: Soft. absent: Tenderness Assessment and Plan - Assessment and Plan (Free Text) Plan: prosthetic valve. On lovenox, monitoring hgt and urine closely. Tonight urine is clear. hemoglobin stable hypotension erlier; assymptomatic receiving some hydration now feels welll uro; stable will re-eval tomorrow for any further bleeding if none on lovenox, then will resume coumadin.
[2018-05-29] MEDS: Sodium Chloride 0.45% 1,000 ML IV SCH (03:12)
[2018-05-29] MEDS: Pantoprazole 40 mg EC Tab PO SCH (10:40)
[2018-05-29] MEDS: Enoxaparin 60 mg Syringe SC SCH ×2 (10:41→22:01)
--- NOTE | 2018-05-29 13:11 | CP.PCM.PN ---
Subjective - Date & Time of Evaluation Date of Evaluation: 05/29/18 Time of Evaluation: 13:07 - Subjective Subjective: POD#3Afibrile urine clearing still needs cbi HGb not dropping . Post op suprapubic lithotomy,TULAP P continue cbi as nessary lujan must remain in place @ minium of 14 days . will repeat labs thursday. Karsten Objective - Vital Signs/Intake and Output Vital Signs (last 24 hours): Temp Pulse Resp BP Pulse Ox 98.5 F 70 20 95/61 L 95 05/29/18 08:11 05/29/18 08:11 05/29/18 08:11 05/29/18 08:11 05/29/18 08:11 Intake and Output: 05/29/18 05/29/18 06:59 18:59 Intake Total 9125 1120 Output Total 14461 1000 Balance -3075 120 - Medications Medications: Current Medications Amiodarone HCl (Cordarone) 100 mg PO DAILY [facility] Last Admin: 05/29/18 10:40 Dose: 100 mg Docusate Sodium (Colace) 100 mg PO BID [facility] Last Admin: 05/29/18 10:41 Dose: 100 mg Enoxaparin Sodium (Lovenox) 60 mg SC Q12 [facility] Last Admin: 05/29/18 10:41 Dose: 60 mg Ferrous Sulfate (Feosol) 325 mg PO TID [facility] Last Admin: 05/29/18 10:40 Dose: 325 mg Finasteride (Proscar) 5 mg PO DAILY [facility] Last Admin: 05/29/18 10:41 Dose: 5 mg Lactulose (Enulose) 20 gm PO HS PRN PRN Reason: Constipation Last Admin: 05/28/18 17:38 Dose: 20 gm Levetiracetam (Keppra) 500 mg PO BID [facility] Last Admin: 05/29/18 10:39 Dose: 500 mg Meperidine HCl (Demerol) 12.5 mg IVP Q5M PRN PRN Reason: Shivering/Rigor Metoprolol Tartrate (Lopressor) 25 mg PO BID [facility] Last Admin: 05/29/18 10:41 Dose: Not Given Ondansetron HCl (Zofran Inj) 4 mg IVP Q4H PRN PRN Reason: FOR NAUSEA/VOMITING Last Admin: 05/24/18 18:02 Dose: 4 mg Pantoprazole Sodium (Protonix Ec Tab) 40 mg PO DAILY [facility] Last Admin: 05/29/18 10:40 Dose: 40 mg Rosuvastatin Calcium (Crestor) 20 mg PO HS [facility] Last Admin: 05/28/18 22:00 Dose: 20 mg Tamsulosin HCl (Flomax) 0.4 mg PO HS [facility] Last Admin: 05/28/18 22:00 Dose: 0.4 mg - Labs Labs: 05/28/18 08:40 05/28/18 16:59 PT 13.5 SECONDS (9.7-12.2) H 05/28/18 11:12 INR 1.2 05/28/18 11:12 APTT 31 SECONDS (21-34) 05/28/18 12:11
--- NOTE | 2018-05-29 14:19 | CP.PCM.PN ---
Subjective - Date & Time of Evaluation Date of Evaluation: 05/29/18 Time of Evaluation: 14:17 - Subjective Subjective: No SOB or CP Objective - Vital Signs/Intake and Output Vital Signs (last 24 hours): Temp Pulse Resp BP Pulse Ox 98.5 F 70 20 95/61 L 95 05/29/18 08:11 05/29/18 08:11 05/29/18 08:11 05/29/18 08:11 05/29/18 08:11 Intake and Output: 05/29/18 05/29/18 06:59 18:59 Intake Total 9125 1120 Output Total 65580 1000 Balance -3075 120 - Medications Medications: Current Medications Amiodarone HCl (Cordarone) 100 mg PO DAILY [facility] Last Admin: 05/29/18 10:40 Dose: 100 mg Docusate Sodium (Colace) 100 mg PO BID [facility] Last Admin: 05/29/18 10:41 Dose: 100 mg Enoxaparin Sodium (Lovenox) 60 mg SC Q12 [facility] Last Admin: 05/29/18 10:41 Dose: 60 mg Ferrous Sulfate (Feosol) 325 mg PO TID [facility] Last Admin: 05/29/18 14:09 Dose: 325 mg Finasteride (Proscar) 5 mg PO DAILY [facility] Last Admin: 05/29/18 10:41 Dose: 5 mg Lactulose (Enulose) 20 gm PO HS PRN PRN Reason: Constipation Last Admin: 05/28/18 17:38 Dose: 20 gm Levetiracetam (Keppra) 500 mg PO BID [facility] Last Admin: 05/29/18 10:39 Dose: 500 mg Meperidine HCl (Demerol) 12.5 mg IVP Q5M PRN PRN Reason: Shivering/Rigor Metoprolol Tartrate (Lopressor) 25 mg PO BID [facility] Last Admin: 05/29/18 10:41 Dose: Not Given Ondansetron HCl (Zofran Inj) 4 mg IVP Q4H PRN PRN Reason: FOR NAUSEA/VOMITING Last Admin: 05/24/18 18:02 Dose: 4 mg Pantoprazole Sodium (Protonix Ec Tab) 40 mg PO DAILY [facility] Last Admin: 05/29/18 10:40 Dose: 40 mg Rosuvastatin Calcium (Crestor) 20 mg PO HS [facility] Last Admin: 05/28/18 22:00 Dose: 20 mg Tamsulosin HCl (Flomax) 0.4 mg PO HS [facility] Last Admin: 05/28/18 22:00 Dose: 0.4 mg Warfarin Sodium (Coumadin) 5 mg PO 1800 [facility] Stop: 05/29/18 18:01 - Labs Labs: 05/28/18 08:40 05/28/18 16:59 PT 13.5 SECONDS (9.7-12.2) H 05/28/18 11:12 INR 1.2 05/28/18 11:12 APTT 31 SECONDS (21-34) 05/28/18 12:11 - Constitutional Appears: Well - Head Exam Head Exam: ATRAUMATIC - Eye Exam Eye Exam: Normal appearance - ENT Exam ENT Exam: Mucous Membranes Moist - Neck Exam Neck Exam: Full ROM - Respiratory Exam Respiratory Exam: Clear to Ausculation Bilateral, NORMAL BREATHING PATTERN. absent: Wheezes - Cardiovascular Exam Cardiovascular Exam: REGULAR RHYTHM, +S1, +S2 - Extremities Exam Extremities Exam: absent: Pedal Edema - Neurological Exam Neurological Exam: Oriented x3 - Psychiatric Exam Psychiatric exam: Normal Affect Assessment and Plan - Assessment and Plan (Free Text) Assessment: 1. Obstructive uropathy s/p cystolithotomy 2. CAD s/p two CABG surgeries 3. 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 PAF -- on amio, in sinus Plan: 1. Cont therapeutic Lovenox with warfarin bridging -- check daily INR's 2. Cont amiodarone 100mg daily
[2018-05-29 16:49] LABS: HEMOGLOBIN 10.9 g/dL (12.0-18.0); MEAN CELL VOLUME 79.3 fL (80.0-94.0); MEAN CORPUSCULAR HEMOGLOBIN 26.2 pg (27.0-31.0); MEAN CORPUSCULAR HGB CONC 33.1 g/dL (33.0-37.0); MEAN PLATELET VOLUME 9.6 fL (7.2-11.7); RBC 4.16 Mil/uL (4.40-5.90); RED CELL DISTRIBUTION WIDTH 20.1 % (11.5-14.5); WHITE BLOOD COUNT 6.2 K/uL (4.8-10.8)
[2018-05-29 16:56] LABS: INR 1.1; PROTHROMBIN TIME 12.5 SECONDS (9.7-12.2)
[2018-05-30 07:39] LABS: BASO % 0.5 % (0.0-2.0); EOS # 0.2 K/uL (0.0-0.7); EOS % 3.1 % (0.0-4.0); HEMOGLOBIN 10.9 g/dL (12.0-18.0); LYMPH # 0.5 K/uL (1.0-4.3); LYMPH % 8.8 % (20.0-40.0); MEAN CELL VOLUME 79.6 fL (80.0-94.0); MEAN CORPUSCULAR HEMOGLOBIN 26.9 pg (27.0-31.0); MEAN CORPUSCULAR HGB CONC 33.7 g/dL (33.0-37.0); MEAN PLATELET VOLUME 10.1 fL (7.2-11.7); MONO # 0.5 K/uL (0.0-0.8); MONO % 9.6 % (0.0-10.0); NEUT # 4.4 K/uL (1.8-7.0); PLATELET COUNT 128 K/uL (130-400); RBC 4.05 Mil/uL (4.40-5.90); RED CELL DISTRIBUTION WIDTH 19.7 % (11.5-14.5); WHITE BLOOD COUNT 5.6 K/uL (4.8-10.8)
[2018-05-30 07:53] LABS: INR 1.2
[2018-05-30 08:46] LABS: EOSINOPHIL 3 % (0-4); LYMPHOCYTE 8 % (20-40); MONOCYTE 7 % (0-10); NEUTROPHIL 82 % (50-75); TOTAL CELLS COUNTED 100
[2018-05-30 08:47] LABS: ANISOCYTOSIS SLIGHT; HYPOCHROMIC SLIGHT; MICROCYTOSIS SLIGHT; PLATELET ESTIMATE NORMAL (NORMAL); POLYCHROMIC SLIGHT
[2018-05-30] MEDS: Enoxaparin 60 mg Syringe SC SCH ×2 (10:39→21:25)
[2018-05-30] MEDS: Pantoprazole 40 mg EC Tab PO SCH (10:39)
--- NOTE | 2018-05-30 15:47 | CP.PCM.PN ---
Subjective - Date & Time of Evaluation Date of Evaluation: 05/30/18 Time of Evaluation: 15:42 - Subjective Subjective: POD# 4 Urine remains bloody without Cbi,pt is afibrile very sliight drop on HGB pt remains comfortable .If urine remains bloody cinsider stopping all anticoagulation for at least 48 hr . cannot remove lujan untill POD# 14 discussed with nurseRoberta Shelley Objective - Vital Signs/Intake and Output Vital Signs (last 24 hours): Temp Pulse Resp BP Pulse Ox 98.6 F 69 20 98/68 L 95 05/30/18 08:00 05/30/18 08:00 05/30/18 08:00 05/30/18 10:44 05/30/18 08:00 Intake and Output: 05/30/18 05/30/18 06:59 18:59 Intake Total 300 9110 Output Total 800 56541 Balance -500 -3590 - Medications Medications: Current Medications Amiodarone HCl (Cordarone) 100 mg PO DAILY [facility] Last Admin: 05/30/18 10:38 Dose: 100 mg Docusate Sodium (Colace) 100 mg PO BID [facility] Last Admin: 05/30/18 10:39 Dose: 100 mg Enoxaparin Sodium (Lovenox) 60 mg SC Q12 [facility] Last Admin: 05/30/18 10:39 Dose: 60 mg Ferrous Sulfate (Feosol) 325 mg PO TID [facility] Last Admin: 05/30/18 13:39 Dose: 325 mg Finasteride (Proscar) 5 mg PO DAILY [facility] Last Admin: 05/30/18 10:38 Dose: 5 mg Lactulose (Enulose) 20 gm PO HS PRN PRN Reason: Constipation Last Admin: 05/29/18 22:01 Dose: 20 gm Levetiracetam (Keppra) 500 mg PO BID [facility] Last Admin: 05/30/18 10:39 Dose: 500 mg Metoprolol Tartrate (Lopressor) 25 mg PO BID [facility] Last Admin: 05/30/18 10:44 Dose: Not Given Ondansetron HCl (Zofran Inj) 4 mg IVP Q4H PRN PRN Reason: FOR NAUSEA/VOMITING Last Admin: 05/24/18 18:02 Dose: 4 mg Pantoprazole Sodium (Protonix Ec Tab) 40 mg PO DAILY [facility] Last Admin: 05/30/18 10:39 Dose: 40 mg Rosuvastatin Calcium (Crestor) 20 mg PO HS [facility] Last Admin: 05/29/18 22:01 Dose: 20 mg Tamsulosin HCl (Flomax) 0.4 mg PO HS [facility] Last Admin: 05/29/18 22:01 Dose: 0.4 mg - Labs Labs: 05/30/18 07:34 05/28/18 16:59 PT 13.0 SECONDS (9.7-12.2) H 05/30/18 07:34 INR 1.2 05/30/18 07:34 APTT 35 SECONDS (21-34) H 05/29/18 16:44
--- NOTE | 2018-05-30 23:09 | CP.PCM.PN ---
Subjective - Date & Time of Evaluation Date of Evaluation: 05/30/18 Time of Evaluation: 23:15 - Subjective Subjective: Pt awake and alert, being assisted to the commode. He has been constipated, but got some Lactulose Poor appetite. SPoke to RN, urine pinkish when CBI is slowed down urine more bloody Discussed case with Dr. Quiñonez earlier complicated situation with need to anticoagulate due to mechanical valve Objective - Vital Signs/Intake and Output Vital Signs (last 24 hours): Temp Pulse Resp BP Pulse Ox 98.1 F 72 20 94/62 L 96 05/30/18 15:00 05/30/18 15:00 05/30/18 15:00 05/30/18 17:30 05/30/18 15:00 Intake and Output: 05/30/18 05/31/18 18:59 06:59 Intake Total 9110 5900 Output Total 73984 6850 Balance -3590 -950 - Medications Medications: Current Medications Amiodarone HCl (Cordarone) 100 mg PO DAILY [facility] Last Admin: 05/30/18 10:38 Dose: 100 mg Docusate Sodium (Colace) 100 mg PO BID [facility] Last Admin: 05/30/18 17:30 Dose: 100 mg Enoxaparin Sodium (Lovenox) 60 mg SC Q12 [facility] Last Admin: 05/30/18 21:25 Dose: 60 mg Ferrous Sulfate (Feosol) 325 mg PO TID [facility] Last Admin: 05/30/18 17:30 Dose: 325 mg Finasteride (Proscar) 5 mg PO DAILY [facility] Last Admin: 05/30/18 10:38 Dose: 5 mg Lactulose (Enulose) 20 gm PO HS PRN PRN Reason: Constipation Last Admin: 05/30/18 21:25 Dose: 20 gm Levetiracetam (Keppra) 500 mg PO BID [facility] Last Admin: 05/30/18 17:30 Dose: 500 mg Metoprolol Tartrate (Lopressor) 25 mg PO BID [facility] Last Admin: 05/30/18 17:30 Dose: Not Given Ondansetron HCl (Zofran Inj) 4 mg IVP Q4H PRN PRN Reason: FOR NAUSEA/VOMITING Last Admin: 05/24/18 18:02 Dose: 4 mg Pantoprazole Sodium (Protonix Ec Tab) 40 mg PO DAILY [facility] Last Admin: 05/30/18 10:39 Dose: 40 mg Rosuvastatin Calcium (Crestor) 20 mg PO HS [facility] Last Admin: 05/30/18 21:25 Dose: 20 mg Tamsulosin HCl (Flomax) 0.4 mg PO HS [facility] Last Admin: 05/30/18 21:25 Dose: 0.4 mg - Labs Labs: 05/30/18 07:34 05/28/18 16:59 PT 13.0 SECONDS (9.7-12.2) H 05/30/18 07:34 INR 1.2 05/30/18 07:34 APTT 35 SECONDS (21-34) H 05/29/18 16:44 - Constitutional Appears: Well, Non-toxic - Eye Exam Eye Exam: Normal appearance - ENT Exam ENT Exam: Mucous Membranes Moist - Respiratory Exam Respiratory Exam: Clear to Ausculation Bilateral - Cardiovascular Exam Cardiovascular Exam: absent: JVD - GI/Abdominal Exam GI & Abdominal Exam: Normal Bowel Sounds Assessment and Plan - Assessment and Plan (Free Text) Assessment: 1. hematuria Discussed case with uro hold off on coumadin for now cardiologyst recommended continuation of Lovenox due to very high risk, ( mechanical valve) continue close monitoring on lovenox cbc 2. constipation lactulose qhs 3. poor appetite will add some suplements
[2018-05-31 07:06] LABS: INR 1.3; PROTHROMBIN TIME 14.5 SECONDS (9.7-12.2)
[2018-05-31 07:25] LABS: HEMOGLOBIN 10.8 g/dL (12.0-18.0); MEAN CELL VOLUME 79.1 fL (80.0-94.0); MEAN CORPUSCULAR HEMOGLOBIN 26.8 pg (27.0-31.0); MEAN CORPUSCULAR HGB CONC 33.9 g/dL (33.0-37.0); MEAN PLATELET VOLUME 10.2 fL (7.2-11.7); RBC 4.02 Mil/uL (4.40-5.90); RED CELL DISTRIBUTION WIDTH 19.5 % (11.5-14.5); WHITE BLOOD COUNT 5.3 K/uL (4.8-10.8)
[2018-05-31 07:39] LABS: BLOOD UREA NITROGEN 15 mg/dL (9-20); CALCIUM 8.6 mg/dl (8.6-10.4); GFR AFRICAN-AMERICAN > 60; GFR NON-AFRICAN AMERICAN > 60
[2018-05-31] MEDS: Pantoprazole 40 mg EC Tab PO SCH (10:56)
[2018-05-31] MEDS: Docusate-Senna 50 mg-8.6 mg Tab PO SCH (10:56)
[2018-05-31] MEDS: Enoxaparin 60 mg Syringe SC SCH ×2 (10:57→21:57)
--- NOTE | 2018-05-31 14:29 | CP.PCM.PN ---
Subjective - Date & Time of Evaluation Date of Evaluation: 05/31/18 Time of Evaluation: 14:24 - Subjective Subjective: DISCUSSED WITH CARDIOLOGY AND DR.BORGINI DR GO YESTERDAY URINE STILL BLOODY W/O CBI WILL MINIMIZE ANTCOAGULATION MUCH POSSIBLE WILL GIVE VOIDING TRIAL THURSDAY EVEN IF URINE BLOODY SAT WILL GIVE VOIDING FAILS TO CLEAR WO [place] OR PT IS IN URINARY RETENTION AGAIN HE WILL NEED TURP. hOSAY Objective - Vital Signs/Intake and Output Vital Signs (last 24 hours): Temp Pulse Resp BP Pulse Ox 98.4 F 71 20 99/56 L 97 05/31/18 08:17 05/31/18 08:17 05/31/18 08:17 05/31/18 10:58 05/31/18 08:17 Intake and Output: 05/31/18 05/31/18 06:59 18:59 Intake Total 5900 8200 Output Total 6850 8000 Balance -950 200 - Medications Medications: Current Medications Amiodarone HCl (Cordarone) 100 mg PO DAILY [facility] Last Admin: 05/31/18 10:57 Dose: 100 mg Docusate Sodium (Colace) 100 mg PO BID [facility] Last Admin: 05/31/18 10:56 Dose: 100 mg Enoxaparin Sodium (Lovenox) 60 mg SC Q12 [facility] Last Admin: 05/31/18 10:57 Dose: 60 mg Ferrous Sulfate (Feosol) 325 mg PO TID [facility] Last Admin: 05/31/18 10:56 Dose: 325 mg Finasteride (Proscar) 5 mg PO DAILY [facility] Last Admin: 05/31/18 10:57 Dose: 5 mg Lactulose (Enulose) 20 gm PO HS PRN PRN Reason: Constipation Last Admin: 05/30/18 21:25 Dose: 20 gm Lactulose (Enulose) 20 gm PO HS [facility] Levetiracetam (Keppra) 500 mg PO BID [facility] Last Admin: 05/31/18 10:56 Dose: 500 mg Metoprolol Tartrate (Lopressor) 25 mg PO BID [facility] Last Admin: 05/31/18 10:58 Dose: Not Given Ondansetron HCl (Zofran Inj) 4 mg IVP Q4H PRN PRN Reason: FOR NAUSEA/VOMITING Last Admin: 05/24/18 18:02 Dose: 4 mg Pantoprazole Sodium (Protonix Ec Tab) 40 mg PO DAILY [facility] Last Admin: 05/31/18 10:56 Dose: 40 mg Rosuvastatin Calcium (Crestor) 20 mg PO HS [facility] Last Admin: 05/30/18 21:25 Dose: 20 mg Senna/Docusate Sodium (Senokot S 50 Mg-8.6 Mg) 1 tab PO DAILY [facility] Last Admin: 05/31/18 10:56 Dose: 1 tab Tamsulosin HCl (Flomax) 0.4 mg PO HS [facility] Last Admin: 05/30/18 21:25 Dose: 0.4 mg - Labs Labs: 05/31/18 06:52 05/31/18 06:52 PT 14.5 SECONDS (9.7-12.2) H 05/31/18 06:52 INR 1.3 05/31/18 06:52 APTT 35 SECONDS (21-34) H 05/29/18 16:44
--- NOTE | 2018-05-31 19:11 | CP.PCM.PN ---
Subjective - Date & Time of Evaluation Date of Evaluation: 05/31/18 Time of Evaluation: 19:11 - Subjective Subjective: PT feels better better appetie +bm no much change in urine color Objective - Vital Signs/Intake and Output Vital Signs (last 24 hours): Temp Pulse Resp BP Pulse Ox 98.5 F 65 20 98/67 L 95 05/31/18 15:42 05/31/18 15:42 05/31/18 15:42 05/31/18 18:03 05/31/18 15:42 Intake and Output: 05/31/18 06/01/18 18:59 06:59 Intake Total 42463 Output Total 35335 Balance -800 - Medications Medications: Current Medications Amiodarone HCl (Cordarone) 100 mg PO DAILY [facility] Last Admin: 05/31/18 10:57 Dose: 100 mg Docusate Sodium (Colace) 100 mg PO BID [facility] Last Admin: 05/31/18 18:00 Dose: 100 mg Enoxaparin Sodium (Lovenox) 60 mg SC Q12 [facility] Last Admin: 05/31/18 10:57 Dose: 60 mg Ferrous Sulfate (Feosol) 325 mg PO TID [facility] Last Admin: 05/31/18 18:01 Dose: 325 mg Finasteride (Proscar) 5 mg PO DAILY [facility] Last Admin: 05/31/18 10:57 Dose: 5 mg Lactulose (Enulose) 20 gm PO HS PRN PRN Reason: Constipation Last Admin: 05/30/18 21:25 Dose: 20 gm Lactulose (Enulose) 20 gm PO [facility] Levetiracetam (Keppra) 500 mg PO BID [facility] Last Admin: 05/31/18 18:01 Dose: 500 mg Metoprolol Tartrate (Lopressor) 25 mg PO BID [facility] Last Admin: 05/31/18 18:03 Dose: Not Given Ondansetron HCl (Zofran Inj) 4 mg IVP Q4H PRN PRN Reason: FOR NAUSEA/VOMITING Last Admin: 05/24/18 18:02 Dose: 4 mg Pantoprazole Sodium (Protonix Ec Tab) 40 mg PO DAILY [facility] Last Admin: 05/31/18 10:56 Dose: 40 mg Rosuvastatin Calcium (Crestor) 20 mg PO [facility] Last Admin: 05/30/18 21:25 Dose: 20 mg Senna/Docusate Sodium (Senokot S 50 Mg-8.6 Mg) 1 tab PO DAILY [facility] Last Admin: 05/31/18 10:56 Dose: 1 tab Tamsulosin HCl (Flomax) 0.4 mg PO HS [facility] Last Admin: 05/30/18 21:25 Dose: 0.4 mg - Labs Labs: 05/31/18 06:52 05/31/18 06:52 PT 14.5 SECONDS (9.7-12.2) H 05/31/18 06:52 INR 1.3 05/31/18 06:52 APTT 35 SECONDS (21-34) H 05/29/18 16:44 - Constitutional Appears: Well, Non-toxic - Eye Exam Eye Exam: Normal appearance - ENT Exam ENT Exam: Mucous Membranes Moist - Respiratory Exam Respiratory Exam: Clear to Ausculation Bilateral. absent: Chest Wall Tenderness Assessment and Plan - Assessment and Plan (Free Text) Assessment: hematuria; appreciate urology recommendations Turp ___ mechanical valve high risk without anticoagulation monitor hgb ___ hypokelemia K replacement ordered
[2018-05-31] MEDS ORDERED: Potassium Chloride 20 mEq/15 ml LIQ UD PO ONE (19:15)
[2018-06-01 07:00] LABS: INR 1.4; PROTHROMBIN TIME 14.9 SECONDS (9.7-12.2)
[2018-06-01] MEDS: Pantoprazole 40 mg EC Tab PO SCH (09:41)
[2018-06-01] MEDS: Docusate-Senna 50 mg-8.6 mg Tab PO SCH (09:42)
[2018-06-01] MEDS: Enoxaparin 60 mg Syringe SC SCH ×2 (09:42→22:13)
--- NOTE | 2018-06-01 11:19 | CP.PCM.PN ---
Subjective - Date & Time of Evaluation Date of Evaluation: 06/01/18 Time of Evaluation: 11:17 - Subjective Subjective: Pod#7,Afibrile urine clear w min cbi Hgb stable. Will dc lujan after pod 10 and give voiding trialHosay Objective - Vital Signs/Intake and Output Vital Signs (last 24 hours): Temp Pulse Resp BP Pulse Ox 97.9 F 71 20 96/54 L 95 06/01/18 07:00 06/01/18 07:00 06/01/18 07:00 06/01/18 07:00 06/01/18 07:00 Intake and Output: 06/01/18 06/01/18 06:59 18:59 Intake Total 7680 Output Total 8900 Balance -1220 - Medications Medications: Current Medications Amiodarone HCl (Cordarone) 100 mg PO DAILY [facility] Last Admin: 06/01/18 09:41 Dose: Not Given Docusate Sodium (Colace) 100 mg PO BID [facility] Last Admin: 06/01/18 09:41 Dose: 100 mg Enoxaparin Sodium (Lovenox) 60 mg SC Q12 [facility] Last Admin: 06/01/18 09:42 Dose: 60 mg Ferrous Sulfate (Feosol) 325 mg PO TID [facility] Last Admin: 06/01/18 09:42 Dose: 325 mg Finasteride (Proscar) 5 mg PO DAILY [facility] Last Admin: 06/01/18 09:42 Dose: 5 mg Lactulose (Enulose) 20 gm PO HS PRN PRN Reason: Constipation Last Admin: 05/30/18 21:25 Dose: 20 gm Lactulose (Enulose) 20 gm PO HS [facility] Last Admin: 05/31/18 21:56 Dose: 20 gm Levetiracetam (Keppra) 500 mg PO BID [facility] Last Admin: 06/01/18 09:41 Dose: 500 mg Metoprolol Tartrate (Lopressor) 25 mg PO BID [facility] Last Admin: 06/01/18 09:42 Dose: Not Given Ondansetron HCl (Zofran Inj) 4 mg IVP Q4H PRN PRN Reason: FOR NAUSEA/VOMITING Last Admin: 05/24/18 18:02 Dose: 4 mg Pantoprazole Sodium (Protonix Ec Tab) 40 mg PO DAILY [facility] Last Admin: 06/01/18 09:41 Dose: 40 mg Rosuvastatin Calcium (Crestor) 20 mg PO HS [facility] Last Admin: 05/31/18 21:56 Dose: 20 mg Senna/Docusate Sodium (Senokot S 50 Mg-8.6 Mg) 1 tab PO DAILY [facility] Last Admin: 06/01/18 09:42 Dose: 1 tab Tamsulosin HCl (Flomax) 0.4 mg PO HS [facility] Last Admin: 05/31/18 21:56 Dose: 0.4 mg - Labs Labs: 05/31/18 06:52 05/31/18 06:52 PT 14.9 SECONDS (9.7-12.2) H 06/01/18 06:44 INR 1.4 06/01/18 06:44 APTT 35 SECONDS (21-34) H 05/29/18 16:44
--- NOTE | 2018-06-01 14:05 | CP.PCM.PN ---
Subjective - Date & Time of Evaluation Date of Evaluation: 06/01/18 Time of Evaluation: 14:01 - Subjective Subjective: No SOB or CP Objective - Vital Signs/Intake and Output Vital Signs (last 24 hours): Temp Pulse Resp BP Pulse Ox 97.9 F 71 20 96/54 L 95 06/01/18 07:00 06/01/18 07:00 06/01/18 07:00 06/01/18 07:00 06/01/18 07:00 Intake and Output: 06/01/18 06/01/18 06:59 18:59 Intake Total 7680 Output Total 8900 Balance -1220 - Medications Medications: Current Medications Amiodarone HCl (Cordarone) 100 mg PO DAILY [facility] Last Admin: 06/01/18 09:41 Dose: Not Given Docusate Sodium (Colace) 100 mg PO BID [facility] Last Admin: 06/01/18 09:41 Dose: 100 mg Enoxaparin Sodium (Lovenox) 60 mg SC Q12 [facility] Last Admin: 06/01/18 09:42 Dose: 60 mg Ferrous Sulfate (Feosol) 325 mg PO TID [facility] Last Admin: 06/01/18 09:42 Dose: 325 mg Finasteride (Proscar) 5 mg PO DAILY [facility] Last Admin: 06/01/18 09:42 Dose: 5 mg Lactulose (Enulose) 20 gm PO HS PRN PRN Reason: Constipation Last Admin: 05/30/18 21:25 Dose: 20 gm Lactulose (Enulose) 20 gm PO HS [facility] Last Admin: 05/31/18 21:56 Dose: 20 gm Levetiracetam (Keppra) 500 mg PO BID [facility] Last Admin: 06/01/18 09:41 Dose: 500 mg Metoprolol Tartrate (Lopressor) 25 mg PO BID [facility] Last Admin: 06/01/18 09:42 Dose: Not Given Ondansetron HCl (Zofran Inj) 4 mg IVP Q4H PRN PRN Reason: FOR NAUSEA/VOMITING Last Admin: 05/24/18 18:02 Dose: 4 mg Pantoprazole Sodium (Protonix Ec Tab) 40 mg PO DAILY [facility] Last Admin: 06/01/18 09:41 Dose: 40 mg Rosuvastatin Calcium (Crestor) 20 mg PO HS [facility] Last Admin: 05/31/18 21:56 Dose: 20 mg Senna/Docusate Sodium (Senokot S 50 Mg-8.6 Mg) 1 tab PO DAILY [facility] Last Admin: 06/01/18 09:42 Dose: 1 tab Tamsulosin HCl (Flomax) 0.4 mg PO HS [facility] Last Admin: 05/31/18 21:56 Dose: 0.4 mg - Labs Labs: 05/31/18 06:52 05/31/18 06:52 PT 14.9 SECONDS (9.7-12.2) H 06/01/18 06:44 INR 1.4 06/01/18 06:44 APTT 35 SECONDS (21-34) H 05/29/18 16:44 - Constitutional Appears: Well - Head Exam Head Exam: ATRAUMATIC - ENT Exam ENT Exam: Mucous Membranes Moist - Neck Exam Neck Exam: Full ROM - Respiratory Exam Respiratory Exam: Clear to Ausculation Bilateral - Cardiovascular Exam Cardiovascular Exam: REGULAR RHYTHM, +S1, +S2 - GI/Abdominal Exam GI & Abdominal Exam: Soft - Extremities Exam Extremities Exam: absent: Pedal Edema - Neurological Exam Neurological Exam: Oriented x3 - Psychiatric Exam Psychiatric exam: Normal Affect - Skin Skin Exam: Normal Color Assessment and Plan - Assessment and Plan (Free Text) Assessment: 1. Obstructive uropathy s/p cystolithotomy -- Had postop hematuria, now improved, Hgb stable 2. CAD s/p two CABG surgeries 3. 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 PAF -- on amio, in sinus Plan: 1. Patient is at a high risk of aortic valve thrombus formation due to mechanical AV prosthesis. Therefore, I would recommend continuing therapeutic Lovenox, especially since patient is currently not experiencing life threatening bleed 2. Cont amiodarone 100mg daily
--- NOTE | 2018-06-01 15:42 | CP.PCM.PN ---
Subjective - Date & Time of Evaluation Date of Evaluation: 06/01/18 Time of Evaluation: 11:00 - Subjective Subjective: No new issues spoke to RN no increase bleeding noted cbi fluid about same color Objective - Vital Signs/Intake and Output Vital Signs (last 24 hours): Temp Pulse Resp BP Pulse Ox 97.9 F 71 20 96/54 L 95 06/01/18 07:00 06/01/18 07:00 06/01/18 07:00 06/01/18 07:00 06/01/18 07:00 Intake and Output: 06/01/18 06/01/18 06:59 18:59 Intake Total 7680 76597 Output Total 8900 74759 Balance -1220 -1900 - Medications Medications: Current Medications Amiodarone HCl (Cordarone) [address] [facility] Last Admin: 06/01/18 09:41 Dose: Not Given Docusate Sodium (Colace) [address] [facility] Last Admin: 06/01/18 09:41 Dose: 100 mg Enoxaparin Sodium (Lovenox) [address] [facility] Last Admin: 06/01/18 09:42 Dose: 60 mg Ferrous Sulfate (Feosol) [address] [facility] Last Admin: 06/01/18 14:24 Dose: 325 mg Finasteride (Proscar) [address] [facility] Last Admin: 06/01/18 09:42 Dose: 5 mg Lactulose (Enulose) 20 gm PO HS PRN PRN Reason: Constipation Last Admin: 05/30/18 21:25 Dose: 20 gm Lactulose (Enulose) 20 gm PO [facility] Last Admin: 05/31/18 21:56 Dose: 20 gm Levetiracetam (Keppra) [address] [facility] Last Admin: 06/01/18 09:41 Dose: 500 mg Metoprolol Tartrate (Lopressor) [address] [facility] Last Admin: 06/01/18 09:42 Dose: Not Given Ondansetron HCl (Zofran Inj) 4 mg IVP Q4H PRN PRN Reason: FOR NAUSEA/VOMITING Last Admin: 05/24/18 18:02 Dose: 4 mg Pantoprazole Sodium (Protonix Ec Tab) [address] [facility] Last Admin: 06/01/18 09:41 Dose: 40 mg Rosuvastatin Calcium (Crestor) [address] [facility] Last Admin: 05/31/18 21:56 Dose: 20 mg Senna/Docusate Sodium (Senokot S 50 Mg-8.6 Mg) [address] [facility] Last Admin: 06/01/18 09:42 Dose: 1 tab Tamsulosin HCl (Flomax) 0.4 mg PO [facility] Last Admin: 05/31/18 21:56 Dose: 0.4 mg - Labs Labs: 05/31/18 06:52 05/31/18 06:52 PT 14.9 SECONDS (9.7-12.2) H 06/01/18 06:44 INR 1.4 06/01/18 06:44 APTT 35 SECONDS (21-34) H 05/29/18 16:44 - Constitutional Appears: Well - Eye Exam Eye Exam: Normal appearance - ENT Exam ENT Exam: Mucous Membranes Moist - Respiratory Exam Respiratory Exam: Clear to Ausculation Bilateral Assessment and Plan - Assessment and Plan (Free Text) Assessment: CBI on appreciate urology note voiding trial in a couple of days cont loan will discuss starting coumadin tomorrow bp on low side but stable cbc and bmp in AM
[2018-06-02 08:00] LABS: HEMOGLOBIN 10.6 g/dL (12.0-18.0); MEAN CELL VOLUME 79.5 fL (80.0-94.0); MEAN PLATELET VOLUME 9.7 fL (7.2-11.7); RBC 3.91 Mil/uL (4.40-5.90); RED CELL DISTRIBUTION WIDTH 19.9 % (11.5-14.5); WHITE BLOOD COUNT 6.5 K/uL (4.8-10.8)
[2018-06-02 08:07] LABS: INR 1.3
[2018-06-02 08:24] LABS: BLOOD UREA NITROGEN 17 mg/dL (9-20); CALCIUM 8.9 mg/dl (8.6-10.4); GFR AFRICAN-AMERICAN > 60; GFR NON-AFRICAN AMERICAN > 60
[2018-06-02] MEDS: Pantoprazole 40 mg EC Tab PO SCH (10:11)
[2018-06-02] MEDS: Docusate-Senna 50 mg-8.6 mg Tab PO SCH (10:11)
--- NOTE | 2018-06-02 11:35 | CP.PCM.PN ---
Subjective - Date & Time of Evaluation Date of Evaluation: 06/02/18 Time of Evaluation: 11:31 - Subjective Subjective: POd#6 Pt doing well urine pink on min cbi wound intact no sign infectionA good po course. will continue lujan and DC ffoley after pod# 10 Hosay Objective - Vital Signs/Intake and Output Vital Signs (last 24 hours): Temp Pulse Resp BP Pulse Ox 97.8 F 80 20 95/65 L 95 06/02/18 08:00 06/02/18 08:00 06/02/18 08:00 06/02/18 08:00 06/02/18 08:00 Intake and Output: 06/02/18 06/02/18 06:59 18:59 Intake Total 680 Output Total 1500 Balance -820 - Medications Medications: Current Medications Amiodarone HCl (Cordarone) 100 mg PO DAILY [facility] Last Admin: 06/02/18 10:12 Dose: Not Given Docusate Sodium (Colace) 100 mg PO BID [facility] Last Admin: 06/02/18 10:12 Dose: 100 mg Enoxaparin Sodium (Lovenox) 60 mg SC Q12 [facility] Last Admin: 06/01/18 22:13 Dose: 60 mg Ferrous Sulfate (Feosol) 325 mg PO TID [facility] Last Admin: 06/02/18 10:12 Dose: 325 mg Finasteride (Proscar) 5 mg PO DAILY [facility] Last Admin: 06/02/18 10:11 Dose: 5 mg Lactulose (Enulose) 20 gm PO HS PRN PRN Reason: Constipation Last Admin: 05/30/18 21:25 Dose: 20 gm Lactulose (Enulose) 20 gm PO HS [facility] Last Admin: 06/01/18 22:11 Dose: 20 gm Levetiracetam (Keppra) 500 mg PO BID [facility] Last Admin: 06/02/18 10:12 Dose: 500 mg Metoprolol Tartrate (Lopressor) 25 mg PO BID [facility] Last Admin: 06/02/18 10:14 Dose: Not Given Ondansetron HCl (Zofran Inj) 4 mg IVP Q4H PRN PRN Reason: FOR NAUSEA/VOMITING Last Admin: 05/24/18 18:02 Dose: 4 mg Pantoprazole Sodium (Protonix Ec Tab) 40 mg PO DAILY [facility] Last Admin: 07/18/18 10:11 Dose: 40 mg Rosuvastatin Calcium (Crestor) 20 mg PO HS [facility] Last Admin: 06/01/18 22:11 Dose: 20 mg Senna/Docusate Sodium (Senokot S 50 Mg-8.6 Mg) 1 tab PO DAILY [facility] Last Admin: 06/02/18 10:11 Dose: 1 tab Tamsulosin HCl (Flomax) 0.4 mg PO HS [facility] Last Admin: 06/01/18 22:11 Dose: 0.4 mg - Labs Labs: 06/02/18 07:45 06/02/18 07:45 PT 14.0 SECONDS (9.7-12.2) H 06/02/18 07:45 INR 1.3 06/02/18 07:45 APTT 35 SECONDS (21-34) H 05/29/18 16:44
[2018-06-02] MEDS: Enoxaparin 60 mg Syringe SC SCH ×2 (11:45→21:59)
--- NOTE | 2018-06-02 18:51 | CP.PCM.PN ---
Subjective - Date & Time of Evaluation Date of Evaluation: 06/02/18 Time of Evaluation: 18:53 - Subjective Subjective: Pt reports feeling well the only complaint he has is constipation had bm yesteday but forced Objective - Vital Signs/Intake and Output Vital Signs (last 24 hours): Temp Pulse Resp BP Pulse Ox 98.1 F 76 20 95/62 L 97 06/02/18 15:00 06/02/18 15:00 06/02/18 15:00 06/02/18 18:27 06/02/18 15:00 Intake and Output: 06/02/18 06/02/18 06:59 18:59 Intake Total 680 300 Output Total 1500 1050 Balance -820 -750 - Medications Medications: Current Medications Amiodarone HCl (Cordarone) 100 mg PO DAILY [facility] Last Admin: 06/02/18 10:12 Dose: Not Given Docusate Sodium (Colace) 100 mg PO BID [facility] Last Admin: 06/02/18 18:24 Dose: 100 mg Enoxaparin Sodium (Lovenox) 60 mg SC Q12 [facility] Last Admin: 06/02/18 11:45 Dose: 60 mg Ferrous Sulfate (Feosol) 325 mg PO TID [facility] Last Admin: 06/02/18 18:25 Dose: 325 mg Finasteride (Proscar) 5 mg PO DAILY [facility] Last Admin: 06/02/18 10:11 Dose: 5 mg Lactulose (Enulose) 20 gm PO HS PRN PRN Reason: Constipation Last Admin: 05/30/18 21:25 Dose: 20 gm Lactulose (Enulose) 20 gm PO [facility] Last Admin: 06/01/18 22:11 Dose: 20 gm Levetiracetam (Keppra) 500 mg PO BID [facility] Last Admin: 06/02/18 18:25 Dose: 500 mg Metoprolol Tartrate (Lopressor) 25 mg PO BID [facility] Last Admin: 06/02/18 18:27 Dose: Not Given Ondansetron HCl (Zofran Inj) 4 mg IVP Q4H PRN PRN Reason: FOR NAUSEA/VOMITING Last Admin: 05/24/18 18:02 Dose: 4 mg Pantoprazole Sodium (Protonix Ec Tab) 40 mg PO DAILY [facility] Last Admin: 06/02/18 10:11 Dose: 40 mg Rosuvastatin Calcium (Crestor) 20 mg PO [facility] Last Admin: 06/01/18 22:11 Dose: 20 mg Senna/Docusate Sodium (Senokot S 50 Mg-8.6 Mg) 1 tab PO DAILY [facility] Last Admin: 06/02/18 10:11 Dose: 1 tab Tamsulosin HCl (Flomax) 0.4 mg PO HS [facility] Last Admin: 06/01/18 22:11 Dose: 0.4 mg Warfarin Sodium (Coumadin) 5 mg PO 1800 [facility] Stop: 06/03/18 18:01 - Labs Labs: 06/02/18 07:45 06/02/18 07:45 PT 14.0 SECONDS (9.7-12.2) H 06/02/18 07:45 INR 1.3 06/02/18 07:45 APTT 35 SECONDS (21-34) H 05/29/18 16:44 - Constitutional Appears: Well - Eye Exam Eye Exam: Normal appearance - ENT Exam ENT Exam: Mucous Membranes Moist - Respiratory Exam Respiratory Exam: Clear to Ausculation Bilateral - Cardiovascular Exam Cardiovascular Exam: absent: JVD - GI/Abdominal Exam GI & Abdominal Exam: Normal Bowel Sounds Assessment and Plan - Assessment and Plan (Free Text) Assessment: Urology; no change, although urine more yellow than pink hemoglobin has remained stable coumadin ordered with close monitoring constipation adjusted meds ____- valve on lovenox hg stable as above
[2018-06-02 20:18] LABS: INR 1.3; PROTHROMBIN TIME 13.7 SECONDS (9.7-12.2)
[2018-06-03 09:16] VITALS: RESP 20
--- NOTE | 2018-06-03 09:56 | CP.PCM.PN ---
Subjective - Date & Time of Evaluation Date of Evaluation: 06/03/18 Time of Evaluation: 09:53 - Subjective Subjective: POD#8 urine is clearing willdc lujan on pod #10 if no change in hematuria HGB stable. Karsten Objective - Vital Signs/Intake and Output Vital Signs (last 24 hours): Temp Pulse Resp BP Pulse Ox 98.8 F 73 20 95/63 L 97 06/03/18 09:12 06/03/18 09:12 06/03/18 09:12 06/03/18 09:12 06/03/18 09:12 Intake and Output: 06/03/18 06/03/18 06:59 18:59 Intake Total 1800 Output Total 1870 Balance -70 - Medications Medications: Current Medications Amiodarone HCl (Cordarone) 100 mg PO DAILY [facility] Last Admin: 06/02/18 10:12 Dose: Not Given Docusate Sodium (Colace) 100 mg PO BID [facility] Last Admin: 06/02/18 18:24 Dose: 100 mg Enoxaparin Sodium (Lovenox) 60 mg SC Q12 [facility] Last Admin: 06/02/18 21:59 Dose: 60 mg Ferrous Sulfate (Feosol) 325 mg PO TID [facility] Last Admin: 06/02/18 18:25 Dose: 325 mg Finasteride (Proscar) 5 mg PO DAILY [facility] Last Admin: 06/02/18 10:11 Dose: 5 mg Lactulose (Enulose) 20 gm PO HS PRN PRN Reason: Constipation Last Admin: 05/30/18 21:25 Dose: 20 gm Lactulose (Enulose) 20 gm PO [facility] Last Admin: 06/02/18 21:59 Dose: 20 gm Levetiracetam (Keppra) 500 mg PO BID [facility] Last Admin: 06/02/18 18:25 Dose: 500 mg Metoprolol Tartrate (Lopressor) 25 mg PO BID [facility] Last Admin: 06/02/18 18:27 Dose: Not Given Ondansetron HCl (Zofran Inj) 4 mg IVP Q4H PRN PRN Reason: FOR NAUSEA/VOMITING Last Admin: 05/24/18 18:02 Dose: 4 mg Pantoprazole Sodium (Protonix Ec Tab) 40 mg PO DAILY [facility] Last Admin: 06/02/18 10:11 Dose: 40 mg Rosuvastatin Calcium (Crestor) 20 mg PO HS [facility] Last Admin: 06/02/18 21:58 Dose: 20 mg Senna/Docusate Sodium (Senokot S 50 Mg-8.6 Mg) 1 tab PO DAILY [facility] Last Admin: 06/02/18 10:11 Dose: 1 tab Tamsulosin HCl (Flomax) 0.4 mg PO HS [facility] Last Admin: 06/02/18 21:58 Dose: 0.4 mg Warfarin Sodium (Coumadin) 5 mg PO 1800 [facility] Stop: 06/03/18 18:01 - Labs Labs: 06/02/18 07:45 06/02/18 07:45 PT 13.7 SECONDS (9.7-12.2) H 06/02/18 19:54 INR 1.3 06/02/18 19:54 APTT 35 SECONDS (21-34) H 05/29/18 16:44
[2018-06-03] MEDS: Docusate-Senna 50 mg-8.6 mg Tab PO SCH (10:02)
[2018-06-03] MEDS: Enoxaparin 60 mg Syringe SC SCH ×2 (10:02→21:21)
[2018-06-03] MEDS: Pantoprazole 40 mg EC Tab PO SCH (10:03)
[2018-06-03 19:58] LABS: INR 1.2; PROTHROMBIN TIME 12.7 SECONDS (9.7-12.2)
--- NOTE | 2018-06-03 22:17 | CP.PCM.PN ---
Subjective - Date & Time of Evaluation Date of Evaluation: 06/03/18 Time of Evaluation: 22:17 - Subjective Subjective: Pt reports feeling well. No new issues still constipated although moving bowels no chest pain or sob urine seems to be clearing up coumadin started yesterday Objective - Vital Signs/Intake and Output Vital Signs (last 24 hours): Temp Pulse Resp BP Pulse Ox 98.7 F 74 20 96/62 L 96 06/03/18 16:00 06/03/18 16:00 06/03/18 16:00 06/03/18 17:53 06/03/18 16:00 Intake and Output: 06/03/18 06/04/18 18:59 06:59 Intake Total 7000 Output Total 8000 Balance -1000 - Medications Medications: Current Medications Amiodarone HCl (Cordarone) 100 mg PO DAILY [facility] Last Admin: 06/03/18 10:01 Dose: Not Given Docusate Sodium (Colace) 100 mg PO BID [facility] Last Admin: 06/03/18 17:52 Dose: 100 mg Enoxaparin Sodium (Lovenox) 60 mg SC Q12 [facility] Last Admin: 06/03/18 21:21 Dose: 60 mg Ferrous Sulfate (Feosol) 325 mg PO TID [facility] Last Admin: 06/03/18 17:53 Dose: 325 mg Finasteride (Proscar) 5 mg PO DAILY [facility] Last Admin: 06/03/18 10:03 Dose: 5 mg Lactulose (Enulose) 20 gm PO HS PRN PRN Reason: Constipation Last Admin: 05/30/18 21:25 Dose: 20 gm Lactulose (Enulose) 20 gm PO [facility] Last Admin: 06/03/18 21:21 Dose: 20 gm Levetiracetam (Keppra) 500 mg PO BID [facility] Last Admin: 06/03/18 17:53 Dose: 500 mg Metoprolol Tartrate (Lopressor) 25 mg PO BID [facility] Last Admin: 06/03/18 17:53 Dose: Not Given Ondansetron HCl (Zofran Inj) 4 mg IVP Q4H PRN PRN Reason: FOR NAUSEA/VOMITING Last Admin: 05/24/18 18:02 Dose: 4 mg Pantoprazole Sodium (Protonix Ec Tab) 40 mg PO DAILY [facility] Last Admin: 06/03/18 10:03 Dose: 40 mg Rosuvastatin Calcium (Crestor) 20 mg PO HS [facility] Last Admin: 06/03/18 21:21 Dose: 20 mg Senna/Docusate Sodium (Senokot S 50 Mg-8.6 Mg) 1 tab PO DAILY [facility] Last Admin: 06/03/18 10:02 Dose: 1 tab Tamsulosin HCl (Flomax) 0.4 mg PO [facility] Last Admin: 06/03/18 21:21 Dose: 0.4 mg - Labs Labs: 06/02/18 07:45 06/02/18 07:45 PT 12.7 SECONDS (9.7-12.2) H 06/03/18 19:40 INR 1.2 06/03/18 19:40 APTT 35 SECONDS (21-34) H 05/29/18 16:44 - Constitutional Appears: Well - Eye Exam Eye Exam: Normal appearance - ENT Exam ENT Exam: Mucous Membranes Moist - Respiratory Exam Respiratory Exam: Clear to Ausculation Bilateral - Cardiovascular Exam Cardiovascular Exam: absent: JVD, Rubs - GI/Abdominal Exam GI & Abdominal Exam: Soft. absent: Tenderness Assessment and Plan - Assessment and Plan (Free Text) Assessment: 1. hematuria improving cont CBI per urology 2. hgb stable 3. mechanical valve coumadin resumed May take some time bore INR is therapeutic due to vit k received
[2018-06-04 08:20] LABS: HEMOGLOBIN 10.5 g/dL (12.0-18.0); MEAN CELL VOLUME 79.8 fL (80.0-94.0); MEAN CORPUSCULAR HEMOGLOBIN 27.2 pg (27.0-31.0); MEAN PLATELET VOLUME 9.5 fL (7.2-11.7); RBC 3.85 Mil/uL (4.40-5.90); RED CELL DISTRIBUTION WIDTH 19.7 % (11.5-14.5); WHITE BLOOD COUNT 7.2 K/uL (4.8-10.8)
[2018-06-04 08:21] LABS: INR 1.2; PROTHROMBIN TIME 13.2 SECONDS (9.7-12.2)
[2018-06-04] MEDS: Pantoprazole 40 mg EC Tab PO SCH (10:28)
[2018-06-04] MEDS: Docusate-Senna 50 mg-8.6 mg Tab PO SCH (10:29)
[2018-06-04 13:52] LABS: INR 1.3; PROTHROMBIN TIME 14.3 SECONDS (9.7-12.2)
--- NOTE | 2018-06-04 15:21 | CP.PCM.PN ---
Subjective - Date & Time of Evaluation Date of Evaluation: 06/04/18 Time of Evaluation: 16:11 - Subjective Subjective: No change today no new issues pt reports being constipated, otherwise no issuesl Objective - Vital Signs/Intake and Output Vital Signs (last 24 hours): Temp Pulse Resp BP Pulse Ox 98.0 F 67 20 96/60 L 97 06/04/18 07:39 06/04/18 07:39 06/04/18 07:39 06/04/18 07:39 06/04/18 07:39 Intake and Output: 06/04/18 06/04/18 06:59 18:59 Intake Total 19591 Output Total 71071 Balance -4740 - Medications Medications: Current Medications Amiodarone HCl (Cordarone) 100 mg PO DAILY [facility] Last Admin: 06/04/18 10:29 Dose: Not Given Docusate Sodium (Colace) 100 mg PO BID [facility] Last Admin: 06/04/18 10:28 Dose: 100 mg Ferrous Sulfate (Feosol) 325 mg PO TID [facility] Last Admin: 06/04/18 14:07 Dose: 325 mg Finasteride (Proscar) 5 mg PO DAILY [facility] Last Admin: 06/04/18 10:29 Dose: 5 mg Lactulose (Enulose) 20 gm PO HS PRN PRN Reason: Constipation Last Admin: 05/30/18 21:25 Dose: 20 gm Lactulose (Enulose) 20 gm PO HS [facility] Last Admin: 06/03/18 21:21 Dose: 20 gm Levetiracetam (Keppra) 500 mg PO BID [facility] Last Admin: 06/04/18 10:28 Dose: 500 mg Metoprolol Tartrate (Lopressor) 25 mg PO BID [facility] Last Admin: 06/04/18 10:29 Dose: Not Given Ondansetron HCl (Zofran Inj) 4 mg IVP Q4H PRN PRN Reason: FOR NAUSEA/VOMITING Last Admin: 05/24/18 18:02 Dose: 4 mg Pantoprazole Sodium (Protonix Ec Tab) 40 mg PO DAILY [facility] Last Admin: 06/04/18 10:28 Dose: 40 mg Polyethylene Glycol (Miralax) 17 gm PO ACD [facility] Rosuvastatin Calcium (Crestor) 20 mg PO HS [facility] Last Admin: 06/03/18 21:21 Dose: 20 mg Senna/Docusate Sodium (Senokot S 50 Mg-8.6 Mg) 1 tab PO DAILY [facility] Last Admin: 06/04/18 10:29 Dose: 1 tab Tamsulosin HCl (Flomax) 0.4 mg PO HS [facility] Last Admin: 06/03/18 21:21 Dose: 0.4 mg - Labs Labs: 06/04/18 08:12 06/02/18 07:45 PT 14.3 SECONDS (9.7-12.2) H 06/04/18 13:43 INR 1.3 06/04/18 13:43 APTT 35 SECONDS (21-34) H 05/29/18 16:44 - Constitutional Appears: Well, No Acute Distress - Eye Exam Eye Exam: Normal appearance - ENT Exam ENT Exam: Mucous Membranes Moist - Respiratory Exam Respiratory Exam: Clear to Ausculation Bilateral - Cardiovascular Exam Cardiovascular Exam: absent: JVD Assessment and Plan - Assessment and Plan (Free Text) Assessment: 1. mechanical valve continue to monitor INR on lovenox until coumadin is therapeutic 2. urologyst will give voiding trial tomorrow CBI Dr. Wynne will cover for me until I return on 06/10/18 check INR daily
--- NOTE | 2018-06-04 15:23 | CP.PCM.PN ---
Subjective - Date & Time of Evaluation Date of Evaluation: 06/04/18 Time of Evaluation: 15:21 - Subjective Subjective: POD 9 Pt doing well urine clear with minimal cbi will give voiding trial thursday AM if urine continues to be clear. Hosay Objective - Vital Signs/Intake and Output Vital Signs (last 24 hours): Temp Pulse Resp BP Pulse Ox 98.0 F 67 20 96/60 L 97 06/04/18 07:39 06/04/18 07:39 06/04/18 07:39 06/04/18 07:39 06/04/18 07:39 Intake and Output: 06/04/18 06/04/18 06:59 18:59 Intake Total 37494 Output Total 88291 Balance -4740 - Medications Medications: Current Medications Amiodarone HCl (Cordarone) 100 mg PO DAILY [facility] Last Admin: 06/04/18 10:29 Dose: Not Given Docusate Sodium (Colace) 100 mg PO BID [facility] Last Admin: 06/04/18 10:28 Dose: 100 mg Ferrous Sulfate (Feosol) 325 mg PO TID [facility] Last Admin: 06/04/18 14:07 Dose: 325 mg Finasteride (Proscar) 5 mg PO DAILY [facility] Last Admin: 06/04/18 10:29 Dose: 5 mg Lactulose (Enulose) 20 gm PO HS PRN PRN Reason: Constipation Last Admin: 05/30/18 21:25 Dose: 20 gm Lactulose (Enulose) 20 gm PO HS [facility] Last Admin: 06/03/18 21:21 Dose: 20 gm Levetiracetam (Keppra) 500 mg PO BID [facility] Last Admin: 06/04/18 10:28 Dose: 500 mg Metoprolol Tartrate (Lopressor) 25 mg PO BID [facility] Last Admin: 06/04/18 10:29 Dose: Not Given Ondansetron HCl (Zofran Inj) 4 mg IVP Q4H PRN PRN Reason: FOR NAUSEA/VOMITING Last Admin: 05/24/18 18:02 Dose: 4 mg Pantoprazole Sodium (Protonix Ec Tab) 40 mg PO DAILY [facility] Last Admin: 06/04/18 10:28 Dose: 40 mg Polyethylene Glycol (Miralax) 17 gm PO ACD [facility] Rosuvastatin Calcium (Crestor) 20 mg PO HS [facility] Last Admin: 06/03/18 21:21 Dose: 20 mg Senna/Docusate Sodium (Senokot S 50 Mg-8.6 Mg) 1 tab PO DAILY [facility] Last Admin: 06/04/18 10:29 Dose: 1 tab Tamsulosin HCl (Flomax) 0.4 mg PO HS [facility] Last Admin: 06/03/18 21:21 Dose: 0.4 mg - Labs Labs: 06/04/18 08:12 06/02/18 07:45 PT 14.3 SECONDS (9.7-12.2) H 06/04/18 13:43 INR 1.3 06/04/18 13:43 APTT 35 SECONDS (21-34) H 05/29/18 16:44
[2018-06-04 17:22] LABS: INR 1.4; PROTHROMBIN TIME 14.9 SECONDS (9.7-12.2)
[2018-06-04] MEDS: POLYETHYLENE GLYCOL 3350 17 GM/Dose PACKET PO SCH (17:28)
[2018-06-05 06:49] LABS: INR 1.6; PROTHROMBIN TIME 17.9 SECONDS (9.7-12.2)
[2018-06-05] MEDS: Pantoprazole 40 mg EC Tab PO SCH (09:37)
[2018-06-05] MEDS: Docusate-Senna 50 mg-8.6 mg Tab PO SCH (09:38)
--- NOTE | 2018-06-05 15:08 | CP.PCM.PN ---
Subjective - Date & Time of Evaluation Date of Evaluation: 06/05/18 Time of Evaluation: 15:07 - Subjective Subjective: Seen and examined No chest pain or dyspnea Objective - Vital Signs/Intake and Output Vital Signs (last 24 hours): Temp Pulse Resp BP Pulse Ox 98.1 F 74 20 95/50 L 96 06/05/18 08:00 06/05/18 08:00 06/05/18 08:00 06/05/18 09:39 06/05/18 08:00 Intake and Output: 06/05/18 06/05/18 06:59 18:59 Intake Total 3250 3450 Output Total 4500 3600 Balance -1250 -150 - Medications Medications: Current Medications Amiodarone HCl (Cordarone) 100 mg PO DAILY [facility] Last Admin: 06/05/18 09:38 Dose: Not Given Docusate Sodium (Colace) 100 mg PO BID [facility] Last Admin: 06/05/18 09:37 Dose: 100 mg Ferrous Sulfate (Feosol) 325 mg PO TID [facility] Last Admin: 06/05/18 13:37 Dose: 325 mg Finasteride (Proscar) 5 mg PO DAILY [facility] Last Admin: 06/05/18 09:38 Dose: 5 mg Lactulose (Enulose) 20 gm PO HS PRN PRN Reason: Constipation Last Admin: 05/30/18 21:25 Dose: 20 gm Lactulose (Enulose) 20 gm PO HS [facility] Last Admin: 06/04/18 21:34 Dose: 20 gm Levetiracetam (Keppra) 500 mg PO BID [facility] Last Admin: 06/05/18 09:38 Dose: 500 mg Metoprolol Tartrate (Lopressor) 25 mg PO BID [facility] Last Admin: 06/05/18 09:39 Dose: Not Given Ondansetron HCl (Zofran Inj) 4 mg IVP Q4H PRN PRN Reason: FOR NAUSEA/VOMITING Last Admin: 05/24/18 18:02 Dose: 4 mg Pantoprazole Sodium (Protonix Ec Tab) 40 mg PO DAILY [facility] Last Admin: 06/05/18 09:37 Dose: 40 mg Polyethylene Glycol (Miralax) 17 gm PO ACD [facility] Last Admin: 06/04/18 17:28 Dose: 17 gm Rosuvastatin Calcium (Crestor) 20 mg PO HS [facility] Last Admin: 06/04/18 21:33 Dose: 20 mg Senna/Docusate Sodium (Senokot S 50 Mg-8.6 Mg) 1 tab PO DAILY [facility] Last Admin: 06/05/18 09:38 Dose: 1 tab Tamsulosin HCl (Flomax) 0.4 mg PO HS [facility] Last Admin: 06/04/18 21:34 Dose: 0.4 mg - Labs Labs: 06/04/18 08:12 06/02/18 07:45 PT 17.9 SECONDS (9.7-12.2) H 06/05/18 06:22 INR 1.6 06/05/18 06:22 APTT 35 SECONDS (21-34) H 05/29/18 16:44 - Head Exam Head Exam: ATRAUMATIC, NORMOCEPHALIC - Eye Exam Eye Exam: EOMI Pupil Exam: PERRL - Respiratory Exam Respiratory Exam: Clear to Ausculation Bilateral, NORMAL BREATHING PATTERN - Cardiovascular Exam Cardiovascular Exam: REGULAR RHYTHM, RRR, +S1, +S2. absent: JVD - GI/Abdominal Exam GI & Abdominal Exam: Soft. absent: Tenderness - Extremities Exam Extremities Exam: absent: Pedal Edema - Neurological Exam Neurological Exam: CN II-XII Intact Assessment and Plan (1) S/P AVR Assessment & Plan: Obstructive uropathy s/p urologic procedure and acute blodd loss anemia Patient is at a high risk of aortic valve thrombus formation due to mechanical AV prosthesis. Therefore, I would recommend continuing therapeutic Lovenox, especially since patient is currently not experiencing life threatening bleed Restart warfarin when cleared by Urology Status: Acute (2) S/P CABG (coronary artery bypass graft) Assessment & Plan: S/p CABG x 2 Clinically stable Cont with meds Status: Acute (3) Afib Assessment & Plan: ON amiodarone In NSR Status: Acute
[2018-06-05] MEDS: POLYETHYLENE GLYCOL 3350 17 GM/Dose PACKET PO SCH (16:00)
[2018-06-06 09:11] LABS: INR 2.9; PROTHROMBIN TIME 31.5 SECONDS (9.7-12.2)
[2018-06-06] MEDS: Pantoprazole 40 mg EC Tab PO SCH (09:34)
[2018-06-06] MEDS: Docusate-Senna 50 mg-8.6 mg Tab PO SCH (09:34)
--- NOTE | 2018-06-06 13:23 | CP.PCM.PN ---
Subjective - Date & Time of Evaluation Date of Evaluation: 06/06/18 Time of Evaluation: 13:19 - Subjective Subjective: POD#11 urine clear w min cbi lujan removed for voiding trial . If pt voids will discharge on flomax and proscar. Sutures to be removed in am . Karsten Objective - Vital Signs/Intake and Output Vital Signs (last 24 hours): Temp Pulse Resp BP Pulse Ox 98.0 F 67 20 94/63 L 97 06/06/18 08:24 06/06/18 08:24 06/06/18 08:24 06/06/18 09:35 06/06/18 08:24 Intake and Output: 06/06/18 06/06/18 06:59 18:59 Intake Total 200 Output Total 250 Balance -50 - Medications Medications: Current Medications Amiodarone HCl (Cordarone) 100 mg PO DAILY [facility] Last Admin: 06/06/18 09:35 Dose: 100 mg Docusate Sodium (Colace) 100 mg PO BID [facility] Last Admin: 06/06/18 09:35 Dose: Not Given Ferrous Sulfate (Feosol) 325 mg PO TID [facility] Last Admin: 06/06/18 09:34 Dose: 325 mg Finasteride (Proscar) 5 mg PO DAILY [facility] Last Admin: 06/06/18 09:34 Dose: 5 mg Lactulose (Enulose) 20 gm PO HS PRN PRN Reason: Constipation Last Admin: 05/30/18 21:25 Dose: 20 gm Lactulose (Enulose) 20 gm PO HS [facility] Last Admin: 06/05/18 21:26 Dose: 20 gm Levetiracetam (Keppra) 500 mg PO BID [facility] Last Admin: 06/06/18 09:34 Dose: 500 mg Metoprolol Tartrate (Lopressor) 25 mg PO BID [facility] Last Admin: 06/06/18 09:35 Dose: Not Given Ondansetron HCl (Zofran Inj) 4 mg IVP Q4H PRN PRN Reason: FOR NAUSEA/VOMITING Last Admin: 05/24/18 18:02 Dose: 4 mg Pantoprazole Sodium (Protonix Ec Tab) 40 mg PO DAILY [facility] Last Admin: 06/06/18 09:34 Dose: 40 mg Polyethylene Glycol (Miralax) 17 gm PO ACD [facility] Last Admin: 06/05/18 16:00 Dose: 17 gm Rosuvastatin Calcium (Crestor) 20 mg PO HS [facility] Last Admin: 06/05/18 21:26 Dose: 20 mg Senna/Docusate Sodium (Senokot S 50 Mg-8.6 Mg) 1 tab PO DAILY [facility] Last Admin: 06/06/18 09:34 Dose: 1 tab Tamsulosin HCl (Flomax) 0.4 mg PO HS [facility] Last Admin: 06/05/18 21:25 Dose: 0.4 mg - Labs Labs: 06/04/18 08:12 06/02/18 07:45 PT 31.5 SECONDS (9.7-12.2) H* D 06/06/18 08:52 INR 2.9 D 06/06/18 08:52 APTT 35 SECONDS (21-34) H 05/29/18 16:44
[2018-06-06] MEDS: POLYETHYLENE GLYCOL 3350 17 GM/Dose PACKET PO SCH (17:26)
[2018-06-07 07:38] LABS: INR 3.8
[2018-06-07 07:44] LABS: PROTHROMBIN TIME 41.4 SECONDS (9.7-12.2)
[2018-06-07] MEDS: Pantoprazole 40 mg EC Tab PO SCH (09:35)
[2018-06-07] MEDS: Docusate-Senna 50 mg-8.6 mg Tab PO SCH (09:35)
--- NOTE | 2018-06-07 12:06 | CP.PCM.PN ---
Subjective - Date & Time of Evaluation Date of Evaluation: 06/07/18 Time of Evaluation: 12:03 - Subjective Subjective: Massey removed yesterday,pt has voided several times Urologically clear for discharge Rx for flomax and proscar given. Pt should return to our officce for suture removal in 1 week. Karsten Objective - Vital Signs/Intake and Output Vital Signs (last 24 hours): Temp Pulse Resp BP Pulse Ox 98.7 F 84 20 98/60 L 96 06/07/18 07:00 06/07/18 07:00 06/07/18 07:00 06/07/18 07:00 06/07/18 07:00 Intake and Output: 06/07/18 06/07/18 06:59 18:59 Intake Total 580 Output Total 650 Balance -70 - Medications Medications: Current Medications Amiodarone HCl (Cordarone) 100 mg PO DAILY [facility] Last Admin: 06/07/18 09:35 Dose: 100 mg Docusate Sodium (Colace) 100 mg PO BID [facility] Last Admin: 06/07/18 09:35 Dose: 100 mg Ferrous Sulfate (Feosol) 325 mg PO TID [facility] Last Admin: 06/07/18 09:35 Dose: 325 mg Finasteride (Proscar) 5 mg PO DAILY [facility] Last Admin: 06/07/18 09:35 Dose: 5 mg Lactulose (Enulose) 20 gm PO HS PRN PRN Reason: Constipation Last Admin: 05/30/18 21:25 Dose: 20 gm Lactulose (Enulose) 20 gm PO HS [facility] Last Admin: 06/06/18 21:24 Dose: 20 gm Levetiracetam (Keppra) 500 mg PO BID [facility] Last Admin: 06/07/18 09:35 Dose: 500 mg Metoprolol Tartrate (Lopressor) 25 mg PO BID [facility] Last Admin: 06/07/18 09:36 Dose: Not Given Ondansetron HCl (Zofran Inj) 4 mg IVP Q4H PRN PRN Reason: FOR NAUSEA/VOMITING Last Admin: 05/24/18 18:02 Dose: 4 mg Pantoprazole Sodium (Protonix Ec Tab) 40 mg PO DAILY [facility] Last Admin: 06/07/18 09:35 Dose: 40 mg Polyethylene Glycol (Miralax) 17 gm PO ACD [facility] Last Admin: 06/06/18 17:26 Dose: 17 gm Rosuvastatin Calcium (Crestor) 20 mg PO HS [facility] Last Admin: 06/06/18 21:24 Dose: 20 mg Senna/Docusate Sodium (Senokot S 50 Mg-8.6 Mg) 1 tab PO DAILY [facility] Last Admin: 06/07/18 09:35 Dose: 1 tab Tamsulosin HCl (Flomax) 0.4 mg PO HS [facility] Last Admin: 06/06/18 21:25 Dose: 0.4 mg - Labs Labs: 06/04/18 08:12 06/02/18 07:45 PT 41.4 SECONDS (9.7-12.2) H* D 06/07/18 07:01 INR 3.8 06/07/18 07:01 APTT 35 SECONDS (21-34) H 05/29/18 16:44
[2018-06-07] MEDS: POLYETHYLENE GLYCOL 3350 17 GM/Dose PACKET PO SCH (17:41)
[2018-06-08 07:28] LABS: INR 3.1
[2018-06-08 07:32] LABS: PROTHROMBIN TIME 34.2 SECONDS (9.7-12.2)
[2018-06-08 07:40] VITALS: O2SAT 96
[2018-06-08] MEDS: Docusate-Senna 50 mg-8.6 mg Tab PO SCH (09:52)
[2018-06-08] MEDS: Pantoprazole 40 mg EC Tab PO SCH (09:53)
--- NOTE | 2018-06-08 15:43 | CP.PCM.PN ---
Subjective - Date & Time of Evaluation Date of Evaluation: 06/08/18 Time of Evaluation: 15:47 - Subjective Subjective: Alert, awake, no bleeding or acute pain, NAD. Objective - Vital Signs/Intake and Output Vital Signs (last 24 hours): Temp Pulse Resp BP Pulse Ox 98.2 F 83 20 91/55 L 96 06/08/18 09:51 06/08/18 09:51 06/08/18 09:51 06/08/18 09:51 06/08/18 09:51 Intake and Output: 06/08/18 06/08/18 06:59 18:59 Intake Total 400 Balance 400 - Medications Medications: Current Medications Amiodarone HCl (Cordarone) 100 mg PO DAILY [facility] Last Admin: 06/08/18 09:54 Dose: 100 mg Docusate Sodium (Colace) 100 mg PO BID [facility] Last Admin: 06/08/18 09:53 Dose: 100 mg Ferrous Sulfate (Feosol) 325 mg PO TID [facility] Last Admin: 06/08/18 13:16 Dose: 325 mg Finasteride (Proscar) 5 mg PO DAILY [facility] Last Admin: 06/08/18 09:52 Dose: 5 mg Lactulose (Enulose) 20 gm PO HS PRN PRN Reason: Constipation Last Admin: 05/30/18 21:25 Dose: 20 gm Lactulose (Enulose) 20 gm PO HS [facility] Last Admin: 06/07/18 21:49 Dose: 20 gm Levetiracetam (Keppra) 500 mg PO BID [facility] Last Admin: 06/08/18 09:53 Dose: 500 mg Metoprolol Tartrate (Lopressor) 12.5 mg PO BID [facility] Ondansetron HCl (Zofran Inj) 4 mg IVP Q4H PRN PRN Reason: FOR NAUSEA/VOMITING Last Admin: 05/24/18 18:02 Dose: 4 mg Pantoprazole Sodium (Protonix Ec Tab) 40 mg PO DAILY [facility] Last Admin: 06/08/18 09:53 Dose: 40 mg Polyethylene Glycol (Miralax) 17 gm PO ACD [facility] Last Admin: 06/07/18 17:41 Dose: 17 gm Rosuvastatin Calcium (Crestor) 20 mg PO HS [facility] Last Admin: 06/07/18 21:49 Dose: 20 mg Senna/Docusate Sodium (Senokot S 50 Mg-8.6 Mg) 1 tab PO DAILY [facility] Last Admin: 06/08/18 09:52 Dose: 1 tab Tamsulosin HCl (Flomax) 0.4 mg PO HS [facility] Last Admin: 06/07/18 21:50 Dose: 0.4 mg Warfarin Sodium (Coumadin) 3 mg PO 1800 [facility] Stop: 06/08/18 18:01 - Labs Labs: 06/04/18 08:12 06/02/18 07:45 PT 34.2 SECONDS (9.7-12.2) H* D 06/08/18 07:04 INR 3.1 06/08/18 07:04 APTT 35 SECONDS (21-34) H 05/29/18 16:44 Assessment and Plan - Assessment and Plan (Free Text) Assessment: 72 year old male admitted with hematuria, on coumadin for atrial fibrillation seen and examined. Alert and oriented x3, denies any pain or bleeding. Cleared by DR Shelley for discharge. To be followed up in his office for suture removal. Discussed with DR Wynne, plan to discharge home on coumadin 3 mg po daily and check the INR in 2 days. Home care, VNS and home PT arranged. Advised to follow up with PMD in 1 week.
[2018-06-08 16:54] VITALS: PULSE 76; TEMP 97.3
[2018-06-08] MEDS: POLYETHYLENE GLYCOL 3350 17 GM/Dose PACKET PO SCH (17:19)
[2018-06-08 17:21] VITALS: BP 98/67
--- NOTE | 2018-06-08 19:50 | CP.PCM.PN ---
Subjective - Date & Time of Evaluation Date of Evaluation: 06/05/18 Time of Evaluation: 10:00 - Subjective Subjective: Patient is a 72-year-old male with a history of chronic A. fib, prosthetic valve admitted with large bladder stone and hematuria, currently being followed up by urologist. Patient underwent stone removal. He has a history of hypertension anemia, pacemaker and open heart surgery in the past. Patient is currently feeling well. He has a subtherapeutic INR. On Coumadin. Physical therapy is being followed up patient is also being monitored one-to- one. Patient is otherwise doing well, will continue the current treatment. Continue the Coumadin INR check will follow the patient Objective - Vital Signs/Intake and Output Vital Signs (last 24 hours): Temp Pulse Resp BP Pulse Ox 97.3 F L 76 20 98/67 L 96 06/08/18 16:00 06/08/18 16:00 06/08/18 16:00 06/08/18 17:20 06/08/18 16:00 Intake and Output: 06/08/18 06/09/18 18:59 06:59 Intake Total 400 Balance 400 - Labs Labs: 06/04/18 08:12 06/02/18 07:45 PT 34.2 SECONDS (9.7-12.2) H* D 06/08/18 07:04 INR 3.1 06/08/18 07:04 APTT 35 SECONDS (21-34) H 05/29/18 16:44
--- NOTE | 2018-06-08 19:51 | CP.PCM.PN ---
Subjective - Date & Time of Evaluation Date of Evaluation: 06/14/18 Time of Evaluation: 19:51 - Subjective Subjective: Patient is clinically stable. He denies any chest pain. No nausea no vomiting noted. Currently doing well. Elevated INR noted, will hold the Coumadin today. He will follow-up the patient Objective - Vital Signs/Intake and Output Vital Signs (last 24 hours): Temp Pulse Resp BP Pulse Ox 97.3 F L 76 20 98/67 L 96 06/08/18 16:00 06/08/18 16:00 06/08/18 16:00 06/08/18 17:20 06/08/18 16:00 Intake and Output: 06/08/18 06/09/18 18:59 06:59 Intake Total 400 Balance 400 - Labs Labs: 06/04/18 08:12 06/02/18 07:45 PT 34.2 SECONDS (9.7-12.2) H* D 06/08/18 07:04 INR 3.1 06/08/18 07:04 APTT 35 SECONDS (21-34) H 05/29/18 16:44
--- NOTE | 2018-06-08 19:51 | CP.PCM.DIS ---
Provider - Provider Date of Admission: 05/24/18 14:13 Attending physician: Marisol Braun MD Time Spent in preparation of Discharge (in minutes): 45 Hospital Course - Lab Results Lab Results: Micro Results 05/24/18 11:55 Urine,Clean Catch Urine Culture - Final No Growth (<1,000 CFU/ML) Most Recent Lab Values WBC 7.2 K/uL (4.8-10.8) 06/04/18 08:12 RBC 3.85 Mil/uL (4.40-5.90) L 06/04/18 08:12 Hgb 10.5 g/dL (12.0-18.0) L 06/04/18 08:12 Hct 30.8 % (35.0-51.0) L 06/04/18 08:12 MCV 79.8 fL (80.0-94.0) L 06/04/18 08:12 MCH 27.2 pg (27.0-31.0) 06/04/18 08:12 MCHC 34.0 g/dL (33.0-37.0) 06/04/18 08:12 RDW 19.7 % (11.5-14.5) H 06/04/18 08:12 Plt Count 184 K/uL (130-400) 06/04/18 08:12 MPV 9.5 fL (7.2-11.7) 06/04/18 08:12 Neut % (Auto) 78.0 % (50.0-75.0) H 05/30/18 07:34 Lymph % (Auto) 8.8 % (20.0-40.0) L 05/30/18 07:34 [place] % (Auto) 9.6 % (0.0-10.0) 05/30/18 07:34 Eos % (Auto) 3.1 % (0.0-4.0) 05/30/18 07:34 Baso % (Auto) 0.5 % (0.0-2.0) 05/30/18 07:34 Neut # (Auto) 4.4 K/uL (1.8-7.0) 05/30/18 07:34 Lymph # (Auto) 0.5 K/uL (1.0-4.3) L 05/30/18 07:34 [place] # (Auto) 0.5 K/uL (0.0-0.8) 05/30/18 07:34 Eos # (Auto) 0.2 K/uL (0.0-0.7) 05/30/18 07:34 Baso # (Auto) 0.0 K/uL (0.0-0.2) 05/30/18 07:34 Neutrophils % (Manual) 82 % (50-75) H 05/30/18 07:34 Lymphocytes % (Manual) 8 % (20-40) L 05/30/18 07:34 Monocytes % (Manual) 7 % (0-10) 05/30/18 07:34 Eosinophils % (Manual) 3 % (0-4) 05/30/18 07:34 Differential Comment 05/25/18 08:00 Platelet Estimate Normal (NORMAL) 05/30/18 07:34 Polychromasia Slight 05/30/18 07:34 Hypochromasia (manual) Slight 05/30/18 07:34 Anisocytosis (manual) Slight 05/30/18 07:34 Microcytosis (manual) Slight 05/30/18 07:34 PT 34.2 SECONDS (9.7-12.2) H* D 06/08/18 07:04 INR 3.1 06/08/18 07:04 APTT 35 SECONDS (21-34) H 05/29/18 16:44 Sodium 134 mmol/L (132-148) 06/02/18 07:45 Potassium 4.2 mmol/L (3.6-5.2) 06/02/18 07:45 Chloride 102 mmol/L (98-107) 06/02/18 07:45 Carbon Dioxide 21 mmol/L (22-30) L 06/02/18 07:45 Anion Gap 15 (10-20) 06/02/18 07:45 BUN 17 mg/dL (9-20) 06/02/18 07:45 Creatinine 0.8 mg/dL (0.8-1.5) 06/02/18 07:45 Est GFR ( Amer) > 60 06/02/18 07:45 Est GFR (Non-Af Amer) > 60 06/02/18 07:45 Random Glucose 106 mg/dL (75-110) 06/02/18 07:45 Calcium 8.9 mg/dl (8.6-10.4) 06/02/18 07:45 Phosphorus 4.2 mg/dL (2.5-4.5) 05/28/18 16:59 Magnesium 1.9 mg/dL (1.6-2.3) 05/28/18 16:59 Total Bilirubin 0.9 mg/dL (0.2-1.3) 05/26/18 05:40 AST 12 U/L (17-59) L D 05/26/18 05:40 ALT 26 U/L (21-72) 05/26/18 05:40 Alkaline Phosphatase 72 U/L (38-126) 05/26/18 05:40 Total Protein 6.0 g/dL (6.3-8.3) L 05/26/18 05:40 Albumin 3.6 g/dL (3.5-5.0) 05/26/18 05:40 Globulin 2.4 gm/dL (2.2-3.9) 05/26/18 05:40 Albumin/Globulin Ratio 1.5 (1.0-2.1) 05/26/18 05:40 Urine Color Red (YELLOW) 05/24/18 11:55 Urine Clarity Hazy (Clear) 05/24/18 11:55 Urine pH 6.0 (5.0-8.0) 05/24/18 11:55 Ur Specific [place] 1.014 (1.003-1.030) 05/24/18 11:55 Urine Protein 2+ mg/dL (NEGATIVE) H 05/24/18 11:55 Urine Glucose (UA) 1+ mg/dL (Normal) H 05/24/18 11:55 Urine Ketones Negative mg/dL (NEGATIVE) 05/24/18 11:55 Urine Blood 3+ (NEGATIVE) H 05/24/18 11:55 Urine Nitrate Negative (NEGATIVE) 05/24/18 11:55 Urine Bilirubin Negative (NEGATIVE) 05/24/18 11:55 Urine Urobilinogen Normal mg/dL (0.2-1.0) 05/24/18 11:55 Ur Leukocyte Esterase 1+ Bryn/uL (Negative) H 05/24/18 11:55 Urine WBC (Auto) 57 /hpf (0-5) H 05/24/18 11:55 Urine RBC (Auto) 31983 /hpf (0-3) H 05/24/18 11:55 Stone Source Bladder 05/26/18 15:59 Stone Weight 4.6560 g 05/26/18 15:59 Stone Composition (()) 05/26/18 15:59 Stone Composition 2 TNP 05/26/18 15:59 Stone Nidus Not observed 05/26/18 15:59 Blood Type B POSITIVE 05/26/18 08:35 Blood Type Confirm B POSITIVE 05/26/18 08:35 Antibody Screen Negative 05/26/18 08:35 - Hospital Course Hospital Course: cc; blood in urine and urological condition HPI: PT is a 72 year old maler recentlly under my care with chronic a fib and prosthetic valve admitted for gross hematuria, large bladder stone. Pt INR on admission is 4 PT will urdergo surgery to remove stone by his urologyst. PT is being admitted with gross hematuria for urology procedure on 05/26/18. Pt co being nauseus. PMH: Iron deficiency anemia Hypercholesterolemia HTN Elevated PSA Convulsions Atril Fib Anemia Surgical Hx: 06/16/2017 Pacemaker 11/16/2016 Open Heart Family Hx: None Social Hx: No smoke No ETOH No Drugs Allergies: None Medications: Keppra 500mg Iron 325mg Miralax powder Metoprolol 25mg Atorvastatin 40mg Aspirin 81mg Warfarin 3mg Tamsulosin 0.4mg Amiodarone 100mg Upon admission patient was noted to have gross hematuria. Patient was initially seen by urologist. Urology consultation was obtained. Patient was clinically otherwise stable. He also had a nausea and vomiting. Patient received vitamin K to reverse the Coumadin. Patient underwent suprapubic cystoscopy, lithotomy and removal of the bladder calculi Postoperatively patient was closely monitored. Seen by custom feed mill operator to postoperatively. Vital signs become stabilized postoperatively. Clinically become more stable. Patient started on Coumadin, currently he is taking 3 mg per day. Latest INR is 3.1. Patient is clinically stable. He will be discharged home today. Chemistries also normal. He will be discharged home cleared by the urologist. Medications reviewed and reconciliation was done. He will follow-up with PMD in 2 days to check the INR. Will follow the patient. Discharge Exam - Head Exam Head Exam: ATRAUMATIC, NORMOCEPHALIC Discharge Plan - Discharge Medications Prescriptions: Amiodarone Hydrochloride [Cordarone] 100 mg PO DAILY #30 tab Warfarin [Coumadin] 3 mg PO 1800 #30 tab Metoprolol Tartrate [Lopressor] 12.5 mg PO BID #60 tab - Follow Up Plan Condition: STABLE Disposition: HOME/ ROUTINE Instructions: Vitamin K Diet, Transurethral Resection of the Prostate (DC), Blood in the Urine (Hematuria), Adult (DC), What to Do When Your INR Is Too High , Going Home on Blood Thinners Referrals: Marisol Braun MD [Staff Provider] - Michaela Wynne MD [Staff Provider] -
--- NOTE | 2018-06-08 19:51 | CP.PCM.PN ---
Subjective - Date & Time of Evaluation Date of Evaluation: 06/06/18 Time of Evaluation: 19:50 - Subjective Subjective: Patient is a 72-year-old male with a history of chronic A. fib, prosthetic valve admitted with large bladder stone and hematuria, currently being followed up by urologist. Patient underwent stone removal. He has a history of hypertension anemia, pacemaker and open heart surgery in the past. Patient is currently feeling well. He has a subtherapeutic INR. On Coumadin. Physical therapy is being followed up patient is also being monitored one-to- one. Patient is otherwise doing well, will continue the current treatment. Today the INR is subtherapeutic, will start the patient on Coumadin 7 mg daily Possible INR check tomorrow Objective - Vital Signs/Intake and Output Vital Signs (last 24 hours): Temp Pulse Resp BP Pulse Ox 97.3 F L 76 20 98/67 L 96 06/08/18 16:00 06/08/18 16:00 06/08/18 16:00 06/08/18 17:20 06/08/18 16:00 Intake and Output: 06/08/18 06/09/18 18:59 06:59 Intake Total 400 Balance 400 - Labs Labs: 06/04/18 08:12 06/02/18 07:45 PT 34.2 SECONDS (9.7-12.2) H* D 06/08/18 07:04 INR 3.1 06/08/18 07:04 APTT 35 SECONDS (21-34) H 05/29/18 16:44
== END 2018-06-08 18:00 | disposition home or self-care (01) | DRG 663 ==
LOC: C.ER 11:25 → C.9E 14:13 → C.3T 15:24
PROVIDERS: ADMIT Internal Medicine; ATTEND Internal Medicine
PROC: 0TCB0ZZ Extirpation of Matter from Bladder, Open Approach (ICD-10-PCS; principal; 2018-05-26 09:15)
PROC: 0V508ZZ Destruction of Prostate, Via Natural or Artificial Opening Endoscopic (ICD-10-PCS; 2018-05-26 09:15)
DX: N21.0 Calculus in bladder (principal); N13.8 Other obstructive and reflux uropathy; N40.1 Benign prostatic hyperplasia with lower urinary tract symptoms; R31.0 Gross hematuria; E87.6 Hypokalemia; R79.1 Abnormal coagulation profile; I48.2 Chronic atrial fibrillation; I44.7 Left bundle-branch block, unspecified; I10 Essential (primary) hypertension; I44.0 Atrioventricular block, first degree; I25.10 Atherosclerotic heart disease of native coronary artery without angina pectoris; D50.9 Iron deficiency anemia, unspecified; K59.00 Constipation, unspecified; E78.00 Pure hypercholesterolemia, unspecified; Z79.01 Long term (current) use of anticoagulants; Z87.442 Personal history of urinary calculi; Z87.891 Personal history of nicotine dependence; Z95.0 Presence of cardiac pacemaker; Z95.1 Presence of aortocoronary bypass graft; Z95.2 Presence of prosthetic heart valve